=== PATIENT | female | born 1995 | race Caucasian/White ===

== ENCOUNTER 2022-05-25 17:10 | Outpatient (CLI) | payer BC, SELFPAY | END 2022-05-25 17:11 | disposition home or self-care (01) | PROVIDERS: PCP Family Medicine; Visit Provider Physician Assistant | DX: O99.281 Endocrine, nutritional and metabolic diseases complicating pregnancy, first trimester (principal); Z3A.12 12 weeks gestation of pregnancy | CPT/HCPCS: 84443 ==

== ENCOUNTER 2022-07-14 08:35 | Outpatient (CLI) | payer BC, SELFPAY ==
--- NOTE | 2022-07-14 08:45 | CRLHL7_ITS ---
For Patients: As a result of the Century Cures Act, medical imaging exams and procedure reports are released immediately into your electronic medical record. You may view this report before your referring provider. If you have questions, please contact your health care provider. INDICATION: Evaluate anatomy. COMPARISON: 04/22/2022 TECHNIQUE: Real time donahue scale imaging of the fetus was performed as well as color Doppler analysis of the umbilical vessels. FINDINGS: Sonographic imaging demonstrates a single living intrauterine gestation. Fetus demonstrates a regular cardiac rate of 142 beats per minute. Fetus has a vertex position. The placenta lies anteriorly without evidence of placenta previa. The edge of the placenta is located 2.8 cm from the internal cervical os. Amniotic fluid volume appears normal. Single deepest vertical pocket: 4.9 cm. The cervix is closed and measures 3.5 cm in length. The composite ultrasound gestational age is calculated at 21 weeks 1 day with an estimated sonographic due date of 11/23/2022. The estimated weight is 397 grams which lies at the 65th %. The following biometric measurements were obtained: Biparietal diameter: 5.2 cm/21 weeks 6 days 87th% Head circumference: 18.6 cm/20 weeks 6 days 50th% Abdominal circumference: 16.1 cm/21 weeks 1 day 60th% Femur length: 3.5 cm/20 weeks 6 days 47th% The HC/AC ratio measures: 1.15 range (1.06-1.25) On anatomic survey, there is a normal appearance of the cerebral ventricles, cavum septi pellucidi, cisterna magna and cerebellum. The nose, lips, and facial profile appear normal. The cervical, thoracic and lumbar spine are well visualized and appear normal. There is a normal four-chamber heart view and the left and right ventricular outflow tracts appear normal. The diaphragm and stomach appear normal. The kidneys and bladder also appear normal. There is a normal three-vessel cord and cord insertion site. The four extremities appear normal. IMPRESSION: Normal OB ultrasound exam with concordance of clinical and sonographic dating. No intrinsic abnormalities noted on anatomic survey. Dictated by Jaun Heredia MD @ 07/14/2022 9:46:41 AM (Electronically Signed)
== END 2022-07-14 08:36 | disposition home or self-care (01) ==
LOC: US 08:36
PROVIDERS: PCP Family Medicine; Visit Provider Obstetrics & Gynecology
DX: Z34.92 Encounter for supervision of normal pregnancy, unspecified, second trimester (principal); Z3A.20 20 weeks gestation of pregnancy
CPT/HCPCS: 76805

== ENCOUNTER 2022-08-06 08:54 | Outpatient (CLI) | payer BC, SELFPAY ==
[2022-08-06 11:03] LABS: TSH With Reflex to FT4* 0.865 uIU/mL (0.270-4.200)
== END 2022-08-06 08:55 | disposition home or self-care (01) ==
LOC: NFLDREF 08:54
PROVIDERS: PCP Family Medicine; Visit Provider Advanced Practice Midwife
DX: E03.9 Hypothyroidism, unspecified (principal)
CPT/HCPCS: 84443

== ENCOUNTER 2022-09-03 08:54 | Outpatient (CLI) | payer BC, SELFPAY ==
[2022-09-04 23:49] LABS: Rapid Plasma Reagin (RPR) Non Reactive (Non Reactive)
== END 2022-09-03 08:55 | disposition home or self-care (01) ==
PROVIDERS: PCP Family Medicine; Visit Provider Advanced Practice Midwife
DX: Z34.80 Encounter for supervision of other normal pregnancy, unspecified trimester (principal)
CPT/HCPCS: 86592

== ENCOUNTER 2022-09-10 08:03 | Outpatient (CLI) | payer BC, SELFPAY ==
[2022-09-10 08:16] LABS: Glucose Fasting Check 75 mg/dl (60-115)
[2022-09-10 12:57] LABS: Glucose 1 Hour Gest 186 mg/dl (70-180)
[2022-09-10 12:58] LABS: Glucose GTT-Gestational 3 Hr 131 mg/dl (70-140)
== END 2022-09-10 08:04 | disposition home or self-care (01) ==
LOC: NFLDREF 08:03
PROVIDERS: PCP Family Medicine; Visit Provider Advanced Practice Midwife
DX: Z34.80 Encounter for supervision of other normal pregnancy, unspecified trimester (principal)
CPT/HCPCS: 82951; 82952

== ENCOUNTER 2022-10-08 15:15 | Outpatient (CLI) | payer BC, SELFPAY | END 2022-10-08 15:16 | disposition home or self-care (01) | PROVIDERS: PCP Family Medicine; Visit Provider Advanced Practice Midwife | DX: E03.9 Hypothyroidism, unspecified (principal) | CPT/HCPCS: 84443 ==

== ENCOUNTER 2022-10-28 09:21 | Outpatient (CLI) | payer BC, SELFPAY ==
[2022-10-29 09:54] LABS: Strep B DNA Probe NEGATIVE (Negative)
[2022-10-30 03:11] LABS: Strep B Pen/Amox Allergy No
== END 2022-10-28 09:22 | disposition home or self-care (01) ==
LOC: NFLDREF 09:21
PROVIDERS: PCP Family Medicine; Visit Provider Advanced Practice Midwife
DX: Z34.93 Encounter for supervision of normal pregnancy, unspecified, third trimester (principal); Z3A.35 35 weeks gestation of pregnancy
CPT/HCPCS: 87081; 87653

== ENCOUNTER 2022-12-03 13:50 | Outpatient (CLI) | payer BC, SELFPAY ==
--- NOTE | 2022-12-03 14:00 | CRLHL7_ITS ---
For Patients: As a result of the Century Cures Act, medical imaging exams and procedure reports are released immediately into your electronic medical record. You may view this report before your referring provider. If you have questions, please contact your health care provider. INDICATION: Post-dates. 41 week 0 days gestation. Assess well-being. COMPARISON: July 14, 2022. TECHNIQUE: Real time donahue scale imaging of the fetus was performed. Without non-stress testing. FINDINGS: Sonographic imaging demonstrates a single living intrauterine gestation. Fetus demonstrates a regular cardiac rate of 118 beats per minute. Fetus has a vertex orientation. The amniotic fluid volume appears normal and there is a single deepest pocket measurement of 4.7 cm. The fetus was active and demonstrated normal breathing movements. There was normal flexion and extension of the trunk and extremities. IMPRESSION: Normal biophysical profile score of 8 out of 8. Dictated by David Lawrence MD @ 12/03/2022 3:05:17 PM (Electronically Signed)
== END 2022-12-03 13:51 | disposition home or self-care (01) ==
LOC: US 13:51
PROVIDERS: PCP Family Medicine; Visit Provider Advanced Practice Midwife
DX: O48.0 Post-term pregnancy (principal)
CPT/HCPCS: 76819

== ENCOUNTER 2022-12-07 07:02 | Inpatient (IN) | payer BC, SELFPAY ==
[2022-12-07] VITALS (83 sets, daily range): BP systolic 96–169; BP diastolic 55–95; PULSE 64–125; RESP 16–18; TEMP 36.4–36.9; O2SAT 93–100; BMI 32.3
--- NOTE | 2022-12-07 07:59 | W.PM.LDBA ---
Subjective History of Present Illness Time Seen by Provider: 07:59 Date Seen: 12/07/22 Narrative: Subjective: Cristel is a 27 year-old G1 now P0 at 41 Weeks, 1 Days gestation who presents from home for induction of labor r/t post-dates . Cervical exam on admission was 1 cm/20 % effaced/-3 station with membranes intact in vertex presentation.?She is supported by her Leoncio. Open to epidural if needed, declines waterbirth. OB Problem List: H&P done 11/04/22 by Hussain Fernandez CNM : Leoncio 1. Hypothyroidism. Taking 50 mcg at beginning of , increased to 75 mcg 04/13/22. 04/13/22: TSH 4.040, free T4 1.26 04/22/22: TSH 2.530 05/25/22: TSH 1.900 Plan to test TSH with reflex T4 each trimester: 2nd trimester: 24 weeks: 0.865 3rd trimester: 33 weeks: 1.03 2. Rubella nonimmune. Vaccination recommended. 3. Failed 1hr GTT (142), but passed 3 hr Flu:07/14/2022 COVID: Completed in boosted x1 Tdap: 10/08/22 OB - Problem Based A/P Additional Plan (1) Post-dates : Status: Acute (2) Hypothyroid: Status: Acute Plan ASSESSMENT:? 27 yo at 41 1/7 weeks gestation? complicated by:?Hypothyroidism, Post-dates Labor type: Induced Category 1 FHR pattern.?? GBS negative ? PLAN:? 1. IOL per cytotec protocol? 2. Monitoring per policy, continuous? 3. Candidate for analgesia of choice.?? 4. Patient encouraged to reposition and ambulate to promote physiologic labor and .? 5. Anticipate progress to active labor and ? Delivery/Labor/Induction Plan Plan: induction Induction method: per misoprostol protocol OB Exam Physical Exam Vital signs: Pulse BP 100 131/78 12/07/22 07:21 12/07/22 07:21 Narrative: Objective: VSS, afebrile General Appearance:? Calm, cooperative. ?No acute distress. ? Psychiatric Exam: Alert and oriented, appropriate affect Abdomen: Gravid Ctx: ?Q 8-10 min apart. Mild FHTs: ?Baseline: 130 bpm ? Variability: Moderate ? Accels: Present ? ?Decels: ?Absent SVE: 1cm/20%/-3 Membranes: Intact? Detailed Labor and Delivery Exam Patient Gravid: Yes
[2022-12-07] MEDS: miSOPROStoL 25 MCG/0.25 TABLET VAGINAL (08:00)
[2022-12-07 08:28] LABS: Basophils Absolute Auto 0.02 K/uL (0.00-0.30); Basophils Percent Auto 0.2 % (0.0-3.0); Eosinophils Absolute Auto 0.14 K/uL (0.00-0.50); Eosinophils Percent Auto 1.7 % (0.0-7.0); Hematocrit 38.5 % (33.0-51.0); Hemoglobin* 12.8 gm/dL (12.0-16.0); Immature Granulocytes Abs Auto 0.04 K/uL (0.00-0.30); Immature Granulocytes Pct Auto 0.5 %; Lymphocytes Percent Auto 18.9 % (20-44); Mean Corpuscular HGB Conc 33 gm/dL (32-36); Mean Corpuscular Hemoglobin 29 pg (26-34); Mean Corpuscular Volume 89 fL (80-100); Monocytes Percent Auto 9.6 % (0.0-11.0); Neutrophils Absolute Auto 5.81 K/uL (1.7-7.0); Neutrophils Percent Auto 69.1 % (42.0-72.0); Platelet Count* 252 K/uL (140-440); RDW Coefficient of Variation % 13.8 % (11.5-15.5); Red Blood Count 4.35 m/uL (4.00-5.20); White Blood Count* 8.41 K/uL (4.50-11.00)
[2022-12-07 08:29] LABS: Slide Review Reflex No
[2022-12-07 09:17] LABS: SARS PCR* Negative SARS-CoV-2 (Negative)
[2022-12-07] MEDS: LACTATED RINGERS 1000 ML 1,000 ML 999 ML IV (15:51)
[2022-12-07] MEDS: LIDOCAINE 2% (PF) 5 ML VIAL EPIDURAL (16:17)
[2022-12-07] MEDS: ROPIVACAINE 0.2% 100 ml 100 ML 12 MG EPIDURAL (16:17)
--- NOTE | 2022-12-07 16:28 | P.ANBPRC_ITS ---
[facility] Medical History (Updated 12/07/22 @ 10:50 by Cyndi Carvajal CNM) Hypothyroid Surgical History (Updated 11/04/22 @ 11:54 by Ronda Fernandez CNM) H/O laparoscopy Family History (Updated 11/04/22 @ 11:56 by Ronda Fernandez CNM) Father Diabetes Social History (Updated 11/04/22 @ 11:54 by Ronda Fernandez CNM) Narrative: SOCIAL HISTORY: Occupation: Occupational therapist at [employer] Marital status: . Partner: Leoncio. Lives with: . Pets: Cat and dog. Restorationism/cultural needs: No. Chemical or radiation exposure: No. Pre- tobacco use: No. Pre- alcohol use: No. Current tobacco use: No. Current alcohol use: No. Recreational drug use: No. Dietary restrictions: No. Blood transfusion acceptable in an emergency: Yes. Planning to breastfeed: Yes. Smoking Status: Never smoker Little interest or pleasure in doing things: several days Feeling down, depressed, or hopeless: not at all Meds Home Medications and Allergies Home Medications Medication Instructions Recorded Confirmed Type prenat.vits,debbie,wqx-[id number]-rflcx 1 tab PO QDAY 04/22/22 12/07/22 History Allergies Allergy/AdvReac Type Severity Reaction Status Date / Time No Known Allergies Allergy Verified 12/07/22 08:44 Results Labs Labs: Laboratory Results - last 24 hr 12/07/22 12/07/22 12/07/22 07:06 08:17 08:17 WBC 8.41 RBC 4.35 Hgb 12.8 Hct 38.5 MCV 89 MCH 29 MCHC 33 RDW Coeff of Elisabeth 13.8 Plt Count 252 Neut % (Auto) 69.1 Lymph % (Auto) 18.9 L [place] % (Auto) 9.6 Eos % (Auto) 1.7 Baso % (Auto) 0.2 Neut # (Auto) 5.81 Lymph # (Auto) 1.60 Ogle # (Auto) 0.80 Eos # (Auto) 0.14 Baso # (Auto) 0.02 SARS-CoV-2 (PCR) Negative SARS-CoV-2 Blood Type O Positive Antibody Screen NEGATIVE Vital Signs Vital Signs: Last Vital Signs Temp 98.4 F 12/07/22 13:19 Pulse 83 12/07/22 16:25 Resp 16 12/07/22 13:19 BP 122/68 12/07/22 16:25 Pulse Ox 100 12/07/22 16:24 Weight: 80.3 kg Height: 157.48 cm Anesthesia Procedures Epidural Insertion Patient Location: OB Start Time: 15:40 Stop Time: 16:40 Start Date: 12/07/22 Stop Date: 12/07/22 Reason for Block: procedure for pain Patient Position: sitting Performed By: Rose Madrid Preanesthetic Checklist: IV checked, risks and benefits discussed, monitors and equipment checked, pre-op evaluation, timeout performed and anesthesia consent Prep: chlorhexidine gluconate Monitoring: blood pressure monitoring, continuous pulse oximetry and heart rate Approach: midline Vertebral Space: lumbar (1-5) Epidural Technique: GRIFFIN saline Needle Type: Tuohy needle Injection Technique: continuous catheter (continuous catheter) Needle gauge: 17 Needle Length (cm): 10 cm Needle Insertion Depth (cm): 6 Catheter Gauge: 19 Catheter Type: multi-orifice Catheter at skin depth (cm): 15 Test Dose Result: negative and lidocaine 1.5% with epinephrine 1 to 200,000
[2022-12-07] MEDS: PHENYLEPHRINE 100 MCG/ML SYRINGE IVP ×4 (17:08→17:50)
[2022-12-07] MEDS: LACTATED RINGERS 1000 ML 1,000 ML 1200 ML IV ×2 (17:08→17:50)
--- NOTE | 2022-12-07 17:27 | P.OBPN_ITS ---
Subjective Date Seen: 12/07/22 Narrative: Subjective:? Cristel is coping well with labor pain/contractions. She is currently being supported by her Leoncio. She received one dose of cytotec at 8am today. Contractions were mild and not uncomfortable. Before the next dose of cytotec was due, Cristel reported the contractions were getting more intense. She was coping well with contractions, breathing through them and changing positions as needed. Leoncio was supportive and providing counter pressure and massage as needed. Contractions continued to be regular and Cristel reported that they were getting much more uncomfortable. Cytotec was held and contractions continued on their own. Cristel requested an epidural about 3:30pm. SVE 4/90%/-1 per RN. Pt was resting comfortably with epidural when I came to check on her. Shortly after I left, called back to room by RN for decels. Returned to room and pt was in all 4s position, but decels to 90's and 80's noted. Phenylephedrine given. Fluid bolus initiated, assisted pt to move into multiple positions including side lying, high fowlers and semi-fowlers. Dr. England called to assess.. FHR returned to baseline with moderate variability with Cristel in semi-fowlers. Will continue to monitor and assist pt to change positions as needed. Denies concerns. Questions answered to her satisfaction. ?She would like to continue with epidural for comfort and pain management.?? ? Objective Exam: Objective: VSS, afebrile General Appearance:? Calm, cooperative. ?No acute distress. ? Psychiatric Exam: Alert and oriented, appropriate affect Abdomen: Gravid Ctx: ?Q 1-4 min apart. Moderate FHTs: ?Baseline: 120 ? Variability: Moderate ? Accels: Present ? ?Decels: ?Present - can not determine late or early based on contraction pattern. Occas ional decel down to 90 with good return to baseline. SVE: 6cm/90%/-1 Membranes: Intact? Vital Signs: Last Vital Signs Temp 97.8 F 12/07/22 16:20 Pulse 72 12/07/22 17:21 Resp 16 12/07/22 16:20 BP 108/61 12/07/22 17:26 Pulse Ox 100 12/07/22 17:20 Plan Plan: Assessment:?? 27 at 41w 1d gestation?? Patient is coping well with challenges of labor.?? Labor type: Induced, Active labor? Category 2 FHR pattern.?? complicated by: Post-dates Plan:?? Continue to monitor closely Continue with routine intrapartum cares as ordered.?? Patient encouraged to change positions to promote physiologic labor and .?? Epidural and Nonpharmacologic comfort measures per patient preference. Monitoring: continuous per protocol Anticipate progress to NVD. ?
--- NOTE | 2022-12-07 20:13 | PM.OBPNL ---
Subjective Time Seen by Provider: 20:00 Date Seen: 12/07/22 Narrative: Subjective:? Into room to evaluate pt for progress/change Cristel is coping well with labor pain/contractions. Resting comfortably in bed with epidural. She reports she was able to get some sleep and feels much better now. She is currently being supported by Leoncio at bedside. Denies concerns. SVE: rim on pt's leftside/100%/0. Contraction pattern remains irregular. RN discussed spinning babies inversion to try to get baby into an optimal position. Cristel agreeable and eager to try. Questions answered to her satisfaction. Baby tolerated inversion well. She would like to continue with epidural for comfort and pain management.?? Objective Exam: Objective: VSS, afebrile General Appearance:? Calm, cooperative. ?No acute distress. ? Psychiatric Exam: Alert and oriented, appropriate affect Abdomen: Gravid Ctx: ?Q 1-5 min apart. Strong FHTs: ?Baseline: 120-125 ? Variability: Moderate ? Accels: Present ? ?Decels: ? Occasional variable decel with good return to baseline, possible earlies but unable to determine based on contraction pattern. SVE: Rim/100%/0 Membranes: Intact? ? Vital Signs: Last Vital Signs Temp 97.6 F 12/07/22 17:26 Pulse 78 12/07/22 19:57 Resp 16 12/07/22 17:26 BP 137/95 H 12/07/22 19:57 Pulse Ox 100 12/07/22 17:20 Plan Plan: Assessment:?? 27 at 41w 1d gestation?? Patient is coping well with challenges of labor.?? Labor type: Induced, Active labor? Category 2 FHR pattern.?? complicated by: Post-dates Plan:?? Continue to monitor closely Continue with routine intrapartum cares as ordered.?? Patient encouraged to change positions to promote physiologic labor and .?? Epidural and Nonpharmacologic comfort measures per patient preference. Monitoring: continuous per protocol Anticipate progress to NVD. ?
[2022-12-07] MEDS: ONDANSETRON 2 MG/ML inj 4 MG IV (23:17)
[2022-12-08] VITALS (19 sets, daily range): BP systolic 107–143; BP diastolic 60–80; PULSE 69–166; RESP 16–18; TEMP 36.4–37.3; O2SAT 97–99
[2022-12-08] MEDS: OXYTOCIN 30 unit/500 ML in NS 30 UNIT/500 ML BAG 300 UNIT IVPB (00:06)
[2022-12-08] MEDS: ROPIVACAINE 0.2% 100 ml 100 ML 12 MG EPIDURAL (00:26)
[2022-12-08] MEDS: LIDOCAINE 1 % PF 30 ML INJECTION (01:18)
--- NOTE | 2022-12-08 01:25 | W.PM.VAGD1_ITS ---
Procedure Delivery date: 12/08/22 Procedure Done: Global Procedure Details: Cristel is a 27 year-old G1 now P1 admitted on 12/07/22 at 41 Weeks, 4 Days gestation for IOL r/t post-dates . Cervical exam on admission was 1 cm/20 % effaced/-2 station with membranes intact in vertex presentation.? SROM?occurred at delivery with meconium stained fluid. Labor Analgesia:? Epidural Pitocin:? No, PP only for AMTSL Labor onset:? 12/07/22 1500 Complete: 12/07/222124 Pushing:? 12/07/222129 heart tones during second stage were: Moderate variability, Baseline 135- 145 with accels, and decels into the 90's with pushing. Good return to baseline between contractions. Cristel pushed with good effort in a number of different positions in the bed. Her Leoncio was supportive at bedside. After 2 hours of pushing Cristel was getting tired and discouraged, but when she could feel her baby's head and see him in the mirror, she was able to push more effectively and her baby was born shortly after. At 12/08/22 0000 a viable male infant, James, delivered in vertex OA presentation over an intact perineum via spontaneous vaginal?delivery. ?Infant was placed on maternal abdomen. ?Cord was clamped and cut after a 5+ minute delay. Nose and mouth were bulb suctioned, infant taken to warmer for further assessment, see RN's note for details.? weight 9lbs, 3oz. ?Apgars: 5 at 1 minute and 7 at 5 minutes and 8 at 10 min. Shoulder dystocia: no. ?Nuchal cord: yes, x1 loose, easily delivered through. Placenta delivered spontaneously and complete at 0012 with a 3 vessel cord. Mother and infant were stable after?delivery. Lacerations:?2nd degree, repaired with 3-0 vicryl.? Blood loss: 100 mL. Blood loss measurement type: QBL? Sponge and needles counts are correct. Events: Labor Induction (Post-dates ) Intrapartal Events: Labor Induction Delivery monitor: external FHT and external uterine Route of delivery: Laceration description: Perineal - 2nd Degree Delivery repair: Vicryl (3.0) Estimated blood loss (mL): 100 (QBL) Anesthesia type: Epidural Disposition: floor Gender: Male presentation: vertex Placental Delivery Description: Spontaneous Cord Description: 3 Vessels, Nuchal Cord (deliverd through) and Loose OB Vag Delivery Procedures Additional Procedures ECV: No Cook Catheter Insertion: No NST: No D&C: No Laceration Repair: Yes (Deep vaginal/perineal 2nd, repaired with 3.0 vicryl in the usual fashion) Tubal Ligation : No Other: No
[2022-12-08] MEDS: IBUPROFEN 600 MG TABLET PO ×3 (02:11→17:40)
--- NOTE | 2022-12-08 04:53 | PM.OBPNVD1 ---
OB - PN:Subj Subjective Time Seen by Provider: 04:53 Date Seen: 12/08/22 Interval history: Subjective: Called to room by RN to assess pt for ULQ pain and shortness of breath. Cristel is a 27 y.o.G1 now P1who was admitted to L & D for IOL r/t post-dates. ?She had an uncomplicated NVD 5 hours ago. ? Cristel feels mostly well, but when she got up to use the bathroom a little bit ago, she reported a significant pain in her upper abdomen, under her ribs, including her back, and more on the left side. RNs reported she was short of breath and did not look well when sitting on the toilet. Cristel stated that she does not feel pain while lying down in bed, but had difficulty sitting up without assistance. The pain is worse when she is sitting without back support. She denies pain in her neck, shoulders and arms. When resting in bed she is comfortable, but still appears tired. She has taken ibuprofen, which seems to be helping with overall pain from delivery. Vital signs have been stable.? She has remained afebrile.? She is tolerating food and drinks well. ?She is voiding without difficulty.? She is passing gas and has not had a bowel movement.? She did ambulate to the bathroom, and reports that she felt a little lightheaded.? Has a small amount of rubra lochia and no significant clots. Bleeding is within normal limits, fundus is firm at umbilicus. Cristel pushed for 2 1/2 hours in multiple positions in bed with an epidural: right & left side-lying, semi-fowlers, squatting with squat bar, and tug of war with a sheet/squat bar. Cristel reported upper abdominal pain when she tried pushing in semi-reclined position, but it was resolved by changing positions. She stated that the current pain she has in her upper abdomen when sitting unassisted is in the same area. Laying down in bed she feels much better and does not have pain. Denies other concerns or questions at this time. Patient comments OB post-: pain well controlled (over all pain well controlled, pt reports upper abdominal pain when sitting unsupported) and tolerating diet [place] status: and doing well [place] feeding status: exclusively OB - PN: Obj Exam Physical Exam: Vital signs: Temp Pulse Resp BP Pulse Ox O2 Del Method 98 F 112 H 16 124/72 99 12/08/22 04:38 12/08/22 04:38 12/08/22 04:38 12/08/22 04:38 12/08/22 04:38 12/08/22 04:38 Narrative: Objective: VSS, BP: 124/72, O2: Sat 99% GENERAL APPEARANCE: tired but calm,?normal affect, alert, no acute distress MOOD: ?appropriate HEENT: normocephalic, neck supple, full ROM CHEST: ?Symmetrical chest wall movement. ?Normal respiratory effort. ?Clear to auscultation, all lobes, bilaterally HEART: ?regular rate and rhythm ABDOMEN: ?soft, mildly-tender. Uterine fundus is firm, at Umbilicus, midline and is appropriate for the stage of recovery. ?Bowel sounds present all 4 quadrants. No pain with palpation. EXTREMITIES: ?normal and mild edema Constitutional: Constitutional: no acute distress and cooperative Routine HEENT Exam: Head: Present normocephalic Eye: Present normal appearance Detailed ENT Exam: Oral mucosa: Present moist Routine Chest/Breast/Axilla Exam: Chest wall: Absent tenderness Routine Respiratory Exam: Respiratory: Present CTA bilaterally Routine Cardiovascular Exam: Cardiovascular: Present RRR Routine Abdominal Exam: Abdominal: Present normal bowel sounds, soft and tenderness (no pain with palpation) Fundus: Present firm (at umbilicus) Routine Back/Spine/Pelvis Exam: Back/Spine: Present full ROM Routine Skin Exam: Skin: Present intact and normal color Routine Neurological Exam: Neurological: Present alert, moving all extremities, normal tone, hearing grossly intact and normal speech Detailed Neurological Exam: Coma Scale: Eye Opening: Spontaneous (4) Verbal Response: Orientated (5) Routine Psychiatric Exam: Psychiatric: Present normal affect, normal thought process, cooperative, good insight and good judgment OB - PN: Obj Data Labs Labs: Laboratory Results - last 24 hr 12/07/22 12/07/22 12/07/22 07:06 08:17 08:17 WBC 8.41 RBC 4.35 Hgb 12.8 Hct 38.5 MCV 89 MCH 29 MCHC 33 RDW Coeff of Elisabeth 13.8 Plt Count 252 Neut % (Auto) 69.1 Lymph % (Auto) 18.9 L [place] % (Auto) 9.6 Eos % (Auto) 1.7 Baso % (Auto) 0.2 Neut # (Auto) 5.81 Lymph # (Auto) 1.60 [place] # (Auto) 0.80 Eos # (Auto) 0.14 Baso # (Auto) 0.02 SARS-CoV-2 (PCR) Negative SARS-CoV-2 Blood Type O Positive Antibody Screen NEGATIVE OB - PN: A/P Vaginal Delivery Assessment and Plan (1) Abdominal muscle pain: Status: Acute (2) care and examination immediately after delivery: Status: Acute (3) Lactating mother: Status: Acute Plan Assessment/Plan G 1 P 1 status post uncomplicated NVD. Lactating Mother Very tired and sore from pushing and delivery Possible muscle strain r/t effort with pushing and epidural Continue to monitor closely Continuous pulse-ox monitoring while sleeping/resting in bed Encouraged Maria Fernanda call nurse with sudden pain, shortness of breath, dizziness or other concerns Ambulation with assistance Continue routine cares. . ?May see if desired. Plan day: 0 Plan: routine care
[2022-12-08] MEDS: DOCUSATE SODIUM 100 MG CAPSULE PO (09:00)
[2022-12-08] MEDS: LEVOTHYROXINE 75 MCG TABLET PO (09:01)
--- NOTE | 2022-12-08 12:13 | PC.NURSE ---
Addendum entered and electronically signed by Katia Alcocer RN 12/08/22 12:17: This RN advised pt to call if any new or worsening symptoms and if needing to get up to the bathroom. Pt verbalized understanding and in agreement with plan of care. Original Note: Pt was able to walk to bathroom. Pt became tired, short of breath, and c/o bilateral upper abdominal pulling. This resolved immediately once pt back to bed in semi fowlers position. Vitals checked and WNL. Ronda Fernandez notified and assessed pt at bedside. Abdominal binder applied per Ronda's recommendation. Pt reports this is providing comfort. Lab orders placed. Lab called to draw.
--- NOTE | 2022-12-08 12:17 | PM.OBPNVD1 ---
OB - PN:Subj Subjective Date Seen: 12/08/22 Narrative: Evaluated Alyssa for upper abdominal pain that started last night after her epidural. She denies pain when sitting or lying but has the pain when she out of bed. She recently went to the bathroom. She states that she felt the pain when she stood but that it increased when she was on the toilet to where she felt that it was difficult to take a deep breath which made her feel short of breath. She states that the pain is midline right below her sternum and sometimes radiates along the margins of the ribs bilaterally. She states that it feels like a downward puling pain. VSS. OB - PN: Obj Exam Physical Exam: Vital signs: Temp Pulse Resp BP Pulse Ox O2 Del Method 98.1 F 69 18 119/73 98 12/08/22 11:25 12/08/22 11:25 12/08/22 11:25 12/08/22 11:25 12/08/22 11:25 12/08/22 11:25 Constitutional: Constitutional: no acute distress Routine Abdominal Exam: Abdominal: Present soft; Absent distended, firm, guarding, rebound or tenderness Fundus: Present firm Detailed Abdominal Exam: Palpation/Percussion: Absent hepatomegaly or splenomegaly OB - PN: A/P Vaginal Delivery Assessment and Plan (1) Abdominal muscle pain: Status: Acute (2) care and examination immediately after delivery: Status: Acute (3) Lactating mother: Status: Acute Plan Pre-Eclampsia labs to rule out blood pressure involvement. Abdominal binder with ambulation to reduce stress on abdominal muscles. Assist with ambulation until she feels stable.
[2022-12-08 12:21] LABS: Hematocrit 32.7 % (33.0-51.0); Hemoglobin* 10.9 gm/dL (12.0-16.0); Mean Corpuscular HGB Conc 33 gm/dL (32-36); Mean Corpuscular Hemoglobin 30 pg (26-34); Mean Corpuscular Volume 89 fL (80-100); Platelet Count* 224 K/uL (140-440); Red Blood Count 3.67 m/uL (4.00-5.20); White Blood Count* 14.32 K/uL (4.50-11.00)
[2022-12-08 12:24] LABS: Slide Review Reflex No
[2022-12-08 12:40] LABS: Alanine Aminotransferase* 18 U/L (4-35); Aspartate Amino Transferase* 39 U/L (12-35); Creatinine* 0.7 mg/dL (0.5-1.5); Est. Creatinine Clearance* 94.63; Estimated Glomerular Filt Rate 121 ml/min
[2022-12-08] MEDS: ACETAMINOPHEN 500 MG TABLET 1000 MG PO ×2 (15:06→21:19)
[2022-12-08] MEDS: MEASLES,MUMPS,RUBELLA VACC/PF 1 DOSE INJ 1 EACH SUBCUT (16:26)
[2022-12-09] MEDS: IBUPROFEN 600 MG TABLET PO ×2 (00:09→08:11)
[2022-12-09] MEDS: ACETAMINOPHEN 500 MG TABLET 1000 MG PO ×2 (03:41→11:55)
[2022-12-09 07:30] LABS: INR 0.84 (0.91-1.10); Prothrombin Time 12.1 Seconds
[2022-12-09 07:35] LABS: Fibrinogen* 459 mg/dL (200-450)
[2022-12-09] MEDS: LEVOTHYROXINE 75 MCG TABLET PO (08:12)
--- NOTE | 2022-12-09 08:13 | PM.OBDSVD1 ---
DS: Providers Provider Date Seen: 12/09/22 Date of admission: 12/07/22 07:02 Primary care physician: Sumit Floyd MD Admitting Clinician: Cyndi Carvajal CNM Attending Physician on discharge: Liliana Macedo CNM DS: Diagnosis Discharge Diagnosis (1) care and examination immediately after delivery: Status: Acute (2) Lactating mother: Status: Acute (3) Abdominal muscle pain: Status: Acute Problem details: Improving with abdominal binder (4) Hypothyroid: Status: Acute Problem details: Continue 75mcg , needs TSH w/ reflex T4 at 6 weeks (5) Attention deficit disorder: Status: Acute Exam Narrative: Exam Narrative: GENERAL APPEARANCE:? normal affect, alert, no distress? MOOD:? appropriate? CHEST:? clear to auscultation? HEART:? regular rate and rhythm? ABDOMEN:? soft, non-tender the uterine fundus is At Umbilicus, Midline and is appropriate for the stage of recovery.? PERINEUM:? mild edema of the perineum, there is a Perineal Laceration,?2nd degree, that is healing well.? EXTREMITIES:? normal and +1 edema? Const: Vital Signs, click to edit/add: Vital Signs - 24 hr 12/08/22 09:02 12/08/22 11:25 12/08/22 16:21 Temperature 97.6 F 98.1 F 98.1 F Pulse Rate [Pulse Oximeter] 89 69 76 Respiratory Rate 16 18 16 Blood Pressure [Le ft Arm] 118/74 119/73 107/71 Pulse Oximetry 98 98 97 Oxygen Delivery Me thod Room Air Room Air Room Air 12/08/22 19:53 12/08/22 23:19 Temperature 97.9 F 98.3 F Pulse Rate [Pulse Oximeter] 94 79 Respiratory Rate 16 16 Blood Pressure [Le ft Arm] 121/80 118/78 Pulse Oximetry 98 97 Oxygen Delivery Me thod Room Air Room Air Documenting provider has reviewed patient's vital signs: yes OB - DS: Summary Hospital Course Hospital Course: Cristel is a 27 year old G 1 P 1 at 41 5/7 weeks gestation that was admitted to the Center on 12/07/22 for IOL for post-dates. She had an uncomplicated vaginal delivery. She delivered a viable male . The patient feels well.?The pain is well controlled with current medications. Her upper abdominal discomfort has been managed well with an abdominal binder. She has no new complaints.?Urinary output is adequate and she is voiding without difficulty.?Has a good appetite, is tolerating a general diet, is passing flatus, and has not yet had a bowel movement.? Has small amount of rubra lochia.?She is ambulating well. She is and reports it is going well. She does desire to continue to work on her skills and see today.?Her plan for control is condoms. Peripartum Data Infant delivery method: Vaginal Laceration description: Perineal - 2nd Degree complications: none Infant Gender: Male Discharge Plan: Home Status at Discharge Functional status at discharge: independent ambulation Overall status at discharge: patient is progressing back to baseline Time Spent with Patient Time attestation: Total time spent providing and/or coordinating discharge services: Time spent: Less than 30 minutes Discharge Plan Discharge Disposition: Home, Self-Care Date of Admission: 12/07/22 07:02 Attending Provider on Discharge: Liliana Macedo Primary Care Provider: Sumit Floyd Condition: Stable Anticipated Discharge Date/Time: 12/09/22 12:00 Discharge Medications: New acetaminophen 500 mg Tablet 1,000 mg PO Q6H PRNQty: 0 0RF docusate sodium 100 mg Capsule 100 mg PO DAILY Qty: 90 0RF ibuprofen 600 mg Tablet 600 mg PO Q6H PRNQty: 60 0RF Continued prenat.vits,debbie,poo-ynqc-vaijc Tablet 1 tab PO QDAY levothyroxine 75 mcg capsule 75 mcg PO QDAY Qty: 30 3RF Discharge Orders: Discharge Order (Routine); Ordered 12/09/22 Ordered By: Liliana Macedo Patient Education: OB Over the Counter Medication Information, OB Vaginal/Breast Feeding Additional Instructions: Discharge instructions were reviewed with the patient including signs and symptoms of infection and home going medications Nothing vaginally for 6 weeks: no tampons or intercourse Off Work or School for 6 weeks 2-week visit: discuss infant feeding concerns, review control options and screen for anxiety/depression. 6-week visit for an annual exam. consultation services are available to all mothers and babies for the first year after delivery.? To make an appointment, please call [phone]. Activity Level: Activity as Tolerated Discharge Diet: Regular Follow Up Appointments: [facility] [Provider Group] (2 and 6 week . Needs TSH w/ reflex T4 with 6 week visit.) Forms: [employer] Info Instructions
[2022-12-09 08:22] VITALS: BP 115/76; PULSE 78; RESP 18; TEMP 36.3; O2SAT 96
[2022-12-09] MEDS: DOCUSATE SODIUM 100 MG CAPSULE PO (08:22)
== END 2022-12-09 12:50 | disposition home or self-care (01) | DRG 560 ==
PROVIDERS: Advanced Practice Midwife; Admitting Provider Advanced Practice Midwife; PCP Family Medicine; Visit Provider Advanced Practice Midwife
DX: O48.0 Post-term pregnancy (principal); O99.284 Endocrine, nutritional and metabolic diseases complicating childbirth; M79.18 Myalgia, other site; O70.1 Second degree perineal laceration during delivery; O76 Abnormality in fetal heart rate and rhythm complicating labor and delivery; E03.9 Hypothyroidism, unspecified; F98.8 Other specified behavioral and emotional disorders with onset usually occurring in childhood and adolescence; Z3A.41 41 weeks gestation of pregnancy; Z37.0 Single live birth
CPT/HCPCS: 01967; 36415; 59200; 82565; 84450; 84460; 85025; 85027; 85384; 85610; 86850; 86900; 86901; 87635; A9270; J2001; J2370; J2405; J2795; J7120

== ENCOUNTER 2023-01-19 10:13 | Outpatient (CLI) | payer BC, SELFPAY | END 2023-01-19 10:14 | disposition home or self-care (01) | LOC: NFLDREF 10:14 | PROVIDERS: PCP Family Medicine; Visit Provider Advanced Practice Midwife | DX: Z39.2 Encounter for routine postpartum follow-up (principal); E03.9 Hypothyroidism, unspecified | CPT/HCPCS: 84443 ==

== ENCOUNTER 2023-04-20 09:00 | Outpatient (RCR) | payer BC, SELFPAY | END 2023-08-18 23:59 | disposition home or self-care (01) | PROVIDERS: PCP Family Medicine; Visit Provider Advanced Practice Midwife | DX: R39.15 Urgency of urination (principal); R15.2 Fecal urgency; Z51.89 Encounter for other specified aftercare | CPT/HCPCS: 97110; 97140; 97162; 97535 ==

== ENCOUNTER 2024-02-22 08:46 | Outpatient (CLI) | payer BC, SELFPAY | END 2024-02-22 08:47 | disposition home or self-care (01) | PROVIDERS: PCP Family Medicine; Visit Provider Physician Assistant | DX: Z01.419 Encounter for gynecological examination (general) (routine) without abnormal findings (principal); E03.9 Hypothyroidism, unspecified; N94.6 Dysmenorrhea, unspecified; Z12.4 Encounter for screening for malignant neoplasm of cervix; Z13.6 Encounter for screening for cardiovascular disorders; Z13.29 Encounter for screening for other suspected endocrine disorder; Z13.1 Encounter for screening for diabetes mellitus | CPT/HCPCS: 80061; 82947; 84443 ==

== ENCOUNTER 2024-06-12 15:35 | Outpatient (CLI) | payer BC, SELFPAY | END 2024-06-12 15:36 | disposition home or self-care (01) | LOC: NFLDREF 06-18 10:27 | PROVIDERS: PCP Family Medicine; Referring Provider Family Medicine; Visit Provider Physician Assistant | DX: E03.9 Hypothyroidism, unspecified (principal) | CPT/HCPCS: 84443 ==

== ENCOUNTER 2024-12-14 10:48 | Outpatient (CLI) | payer BC, SELFPAY ==
--- NOTE | 2024-12-14 11:15 | CRLHL7_ITS ---
For Patients: As a result of the Century Cures Act, medical imaging exams and procedure reports are released immediately into your electronic medical record. You may view this report before your referring provider. If you have questions, please contact your health care provider. Indication: INFERTILITY Technique: Hysterosalpingogram performed. Fluoroscopic time 0.36 minutes. IMPRESSION: Normal patency of the fallopian tubes with spillage bilaterally. No endometrial canal filling defect. Dictated by Jaun Heredia MD @ 12/15/2024 1:32:12 PM (Electronically Signed)
--- NOTE | 2024-12-14 13:18 | W.PM.GYNPROC ---
Procedure Note Date of procedure: 12/14/24 Will [facility] bill your pro fee for this procedure?: Yes Procedure Description: PREPROCEDURE DIAGNOSIS: Secondary infertility. POSTPROCEDURE DIAGNOSIS: 1. Secondary infertility. 2. Patent fallopian tubes bilaterally. NAME OF PROCEDURE: Hysterosalpingogram. ANESTHESIA: None. COMPLICATIONS: None. PROCEDURE: After obtaining verbal consent, the patient was placed in the dorsal lithotomy position on the x-ray table. An open-sided bivalve speculum was introduced into the vagina and the cervix easily visualized. The cervix and vagina were then prepped with Betadine. The anterior lip of the cervix was grasped with a single-tooth tenaculum for traction. A balloon tipped double-lumen catheter was then gently inserted through the cervical opening into the uterine cavity. The balloon was insufflated with 3 mL of air. The speculum was removed. The patient was repositioned in the supine position, covered, and the radiologist was called to the room. A hysterosalpingogram was then performed. A total of approximately 5 cc of Optiray 300 water soluble contrast dye was injected through the double-lumen catheter under moderate pressure. There was immediate fill of the uterine cavity to the cornua and immediate fill of both fallopian tubes and free spillage of dye into the peritoneal cavity. The intrauterine balloon was deflated, revealing normal endometrial cavity contour. The catheter was removed. The patient tolerated the procedure well, though she did have moderate cramping discomfort during and just after the procedure. She was discharged to home in stable condition to follow up as needed in the [facility].
== END 2024-12-14 10:49 | disposition home or self-care (01) ==
PROVIDERS: PCP Family Medicine; Visit Provider Obstetrics & Gynecology
DX: N97.9 Female infertility, unspecified (principal)
CPT/HCPCS: 58340; 74740; A4649; Q9967

== ENCOUNTER 2024-12-18 15:43 | Outpatient (CLI) | payer BC, SELFPAY ==
--- NOTE | 2024-12-18 16:00 | CRLHL7_ITS ---
For Patients: As a result of the Century Cures Act, medical imaging exams and procedure reports are released immediately into your electronic medical record. You may view this report before your referring provider. If you have questions, please contact your health care provider. INDICATION: Female infertility COMPARISON: none TECHNIQUE: 2D donahue scale and color Doppler images were acquired of the pelvis using a transabdominal and transvaginal approach. FINDINGS: Sonographic images demonstrate a normal size and smooth outer contour of the uterus. Uterus measures 7.5 cm in length by 4.7 cm in AP diameter by 4.2 cm in transverse dimension. The myometrium has a normal uniform echotexture. The endometrial lining measures 12 mm in composite thickness. Echogenic foci associated with the endometrium may represent punctate calcifications. The right ovary measures 4.2 x 2.0 x 2.2 cm in size and the left ovary measures 2.9 x 1.4 x 2.0 cm. The ovaries demonstrate normal arterial and venous blood flow on color Doppler analysis. There are no suspicious fluid collections within the cul-de-sac. Dominant follicle right ovary is present measuring 1.7 cm. IMPRESSION: Endometrial thickness 1.2 cm with suspicion of small echogenic foci representing punctate calcifications. No uterine fibroid or endometrial fluid. Dominant right ovarian follicle measuring 1.7 cm. Dictated by Jaun Heredia MD @ 12/18/2024 9:34:38 PM (Electronically Signed)
== END 2024-12-18 15:44 | disposition home or self-care (01) ==
LOC: US 15:43
PROVIDERS: PCP Family Medicine; Visit Provider Physician Assistant
DX: N97.9 Female infertility, unspecified (principal); R93.89 Abnormal findings on diagnostic imaging of other specified body structures; N83.01 Follicular cyst of right ovary
CPT/HCPCS: 76830; 76856

== ENCOUNTER 2024-12-26 07:37 | Outpatient (CLI) | payer BC, SELFPAY | END 2024-12-26 07:38 | disposition home or self-care (01) | LOC: NFLDREF 12-30 06:25 | PROVIDERS: PCP Family Medicine; Referring Provider Family Medicine; Visit Provider Physician Assistant | DX: N97.9 Female infertility, unspecified (principal) | CPT/HCPCS: 84144 ==

== ENCOUNTER 2025-01-07 17:51 | Emergency (ER) | payer BC, SELFPAY ==
[2025-01-07 17:57] VITALS: BP 125/76; PULSE 102; RESP 18; TEMP 36.9; O2SAT 100; BMI 27.4
--- NOTE | 2025-01-07 18:27 | ED_ITS ---
HPI - General Date Seen: 01/07/25 Chief complaint: Abdominal Pain Stated complaint: 4 weeks , abdominal pain Time Seen by Provider: 01/07/25 17:52 Source: patient and family Mode of arrival: ambulatory Limitations: no limitations History of Present Illness HPI Narrative: Patient is a 29-year-old female who presents here with her , she has , last normal menstrual period was 02/25/2003, given her an EDC of 09/12/2025, and about 4 half weeks . She denies any bleeding, but has had abdominal discomfort since approximately Wednesday. She has had loose stools, associated with this. And a feeling throughout her entire abdomen of just being unwell she describes it as a colicky pain that comes and goes. Not worse with eating, but she feels a little lightheaded. Has some mild back pain bilaterally in her back also associated with this, denies any numbness tingling weakness was no dysuria frequency of urination. Past history of endometriosis by laparoscopy peak, previous normal vaginal delivery. Did not take any medications for this. Only home tests were done for . MD Complaint: abdominal pain Onset (ago): day(s) Pain Consistency: intermittent and colicky Location: abdomen and flank Severity: moderate Quality: Cramping and Aching Radiation: flank Relieving factors: rest Exacerbating factors: movement Associated symptoms: denies other symptoms Vaginal discharge: none Vaginal bleeding: none Patient : Yes OB History - Current : no complications OB History - Previous Pregnancies: no complications care: good care Related Data : 2 Para: 1 Home Medications ?Medication ?Instructions ?Recorded ?Confirmed XBT-[id number]-NG-omega 3-fat com #1 27 cap PO DAILY 12/12/24 12/12/24 mg-1 mg-300 mg capsule Previous Rx's ?Medication ?Instructions ?Recorded levothyroxine 25 mcg tablet 25 mcg PO DAILY #90 tabs 10/23/24 Allergies Allergy/AdvReac Type Severity Reaction Status Date / Time No Known Allergies Allergy Verified 01/07/25 17:56 Review of Systems Status of ROS: Reports: 10 or more systems reviewed and unremarkable except as noted in History and below [facility] Medical History Hypothyroid ?E03.9 - Hypothyroidism, unspecified (ICD-10) Dysmenorrhea (04/04/12) ?N94.6 - Dysmenorrhea, unspecified (ICD-10) Surgical History H/O laparoscopy ?Z98.890 - Other specified postprocedural states (ICD-10) Family History Father Diabetes Social History Narrative: SOCIAL HISTORY: Occupation: Occupational therapist at [employer] Marital status: . Partner: Leoncio. Lives with: . Pets: Cat and dog. Jehovah'S Witness/cultural needs: No. Chemical or radiation exposure: No. Pre- tobacco use: No. Pre- alcohol use: No. Current tobacco use: No. Current alcohol use: No. Recreational drug use: No. Dietary restrictions: No. Blood transfusion acceptable in an emergency: Yes. Planning to breastfeed: Yes. Smoking Status: Never smoker Do you use any of these nicotine containing products: None Second hand tobacco smoke exposure: No How often do you have a drink containing alcohol: never How often do you have six or more drinks on one occasion: Never AUDIT-C Alcohol total score: 0 Non-prescribed substance use: denies use service: No Exam Narrative: Exam Narrative: She is seen in room 3 she appears to be in no distress, alert oriented x3, her vital signs are listed, and otherwise normal with very very slight tachycardia at 1:02 a.m.. Pupils equal round reactive to light there is no scleral icterus redness oropharynx is normal good hydration status neck is supple chest is clear bilaterally heart sounds are normal, her abdomen it on deep palpation is some mild tenderness I would describe it more in her right lower quadrant than in her epigastrium she has a negative Taver[place] side, no CVA tenderness is noted, she is able to sit up with no pain in her back, SLR is are negative to 90?, skin reveals no petechiae rashes. Const: Vital Signs, click to edit/add: Vital Signs - 24 hr 01/07/25 17:57 Temperature 98.4 F Pulse Rate [Pulse Oximeter] 102 H Respiratory Rate 18 Blood Pressure [Ri ght Upper Arm] 125/76 Pulse Oximetry 100 Oxygen Delivery Me thod Room Air Documenting provider has reviewed patient's vital signs: yes Course Course ED Course: I discussed with her, the process I would suggest an IV, blood tests urine test. At this point. I would also suggest Tylenol, and maybe help her discomfort which is safe in . She was comfortable with this plan. I will update her on her laboratory work and use shared decision making. Reevaluation(s) Time of Reevaluation #1: 19:53 Reevaluation #1: Patient feels a lot better after Tylenol and IV fluids, her urinalysis came back showing some ketones but otherwise negative, white count normal CRP basically normal, procal normal also. Her white count was normal also. Given what I see and a HCG quantitative of 2294 I think with her right lower quadrant pain we need to rule out ectopic, ultrasound is been contacted. I think there is a lower chance of this is appendicitis although that I think that will need to be followed up also. But given the fact that she is , early on I do not think CT scanning is indicated. Time of Reevaluation #2: 21:51 Reevaluation #2: I reviewed with her that her abdominal pain is improved with 2 L of fluid in the Tylenol, her ultrasound shows a small corpus luteum cyst on the right side could not 100% rule out ectopic but this is felt to be unlikely, and she had a very small intrauterine cystic could be an early gestational sac I then reviewed with the case with our OBGYN doctor she felt that this was unlikely but still possible, she would recommend being seen mid week, obviously ectopic precautions, given to patient along with of 48 hour beta hCG. I then discussed with patient, they were comfortable with this. They will return if increasing abdominal pain or other issues Vital Signs Vital signs: Initial Vital Signs Temperature 98.4 F 01/07/25 17:57 Temperature Source Temporal Artery Scan 01/07/25 17:57 Pulse Rate 102 H 01/07/25 17:57 Pulse Rhythm Regular 01/07/25 17:57 Respiratory Rate 18 01/07/25 17:57 Blood Pressure 125/76 01/07/25 17:57 Blood Pressure Mean 92 01/07/25 17:57 Blood Pressure Position High-Fowlers 01/07/25 17:57 Pulse Oximetry 100 01/07/25 17:57 Oxygen Delivery Method Room Air 01/07/25 17:57 Vital Signs Temperature 98.4 F 01/07/25 17:57 Pulse Rate 102 H 01/07/25 17:57 Respiratory Rate 18 01/07/25 17:57 Blood Pressure 125/76 01/07/25 17:57 Pulse Oximetry 100 01/07/25 17:57 Oxygen Delivery Method Room Air 01/07/25 17:57 Temperature 98.4 F 01/07/25 17:57 Pulse Rate 102 H 01/07/25 17:57 Respiratory Rate 18 01/07/25 17:57 Blood Pressure 125/76 01/07/25 17:57 Pulse Oximetry 100 01/07/25 17:57 Oxygen Delivery Method Room Air 01/07/25 17:57 Medications Administered Medications: Discontinued Medications Generic Name Dose Route Start Last Admin Trade Name Freq PRN Reason Stop Dose Admin Acetaminophen 1,000 mg 01/07/25 18:21 01/07/25 18:33 Acetaminophen 500 Mg Tablet PO 01/07/25 18:22 1,000 mg ONCE ONE Administration Sodium Chloride 1,000 mls @ 1,000 mls/hr 01/07/25 18:30 01/07/25 19:57 0.9 % Sodium Chloride 1000 Ml IV 01/07/25 19:29 Infused .Q1H ROXY Infusion Sodium Chloride 1,000 mls @ 1,000 mls/hr 01/07/25 18:45 01/07/25 21:01 0.9 % Sodium Chloride 1000 Ml IV 01/07/25 19:44 Infused .Q1H ROXY Infusion MDM - OB/Uterine Contractions MDM Narrative Medical decision making narrative: During the evaluation of this patient I considered multiple differential diagnosis including life-threatening differentials which are appendicitis, aortic aneurysm, mesenteric ischemia, bowel perforation, ectopic , volvulus and bowel obstruction, other differential diagnosis include but are not limited to inflammatory bowel disease, cholecystitis, pancreatitis, hepatitis, gastritis, GERD, diverticulitis, peptic ulcer disease, pyelonephritis/UTI, renal colic/stone, pelvic inflammatory disease, cervicitis, endometritis, intrauterine , dysfunctional uterine bleeding, ovarian cyst/torsion, spontaneous as well as other etiologies Medical Records Attestation: I reviewed the patient's medical records. Lab Data Attestation: I reviewed the patient's lab results. Labs: Lab Results 01/07/25 01/07/25 01/07/25 Range/Units 18:25 18:32 18:37 WBC 5.19 (4.50-11.00) K/uL RBC 4.57 (4.00-5.20) m/uL Hgb 13.3 (12.0-16.0) gm/dL Hct 39.9 (33.0-51.0) % MCV 87 (80-100) fL MCH 29 (26-34) pg MCHC 33 (32-36) gm/dL RDW Coeff of Elisabeth 12.4 (11.5-15.5) % Plt Count 247 (140-440) K/uL Neut % (Auto) 67.8 (42.0-72.0) % Lymph % (Auto) 18.7 L (20-44) % [place] % (Auto) 11.8 H (0.0-11.0) % Eos % (Auto) 1.3 (0.0-7.0) % Baso % (Auto) 0.4 (0.0-3.0) % Neut # (Auto) 3.52 (1.7-7.0) K/uL Lymph # (Auto) 1.00 (0.90-2.90) K/uL [place] # (Auto) 0.60 (0.00-0.90) K/UL Eos # (Auto) 0.07 (0.00-0.50) K/uL Baso # (Auto) 0.02 (0.00-0.30) K/uL Abs Immat Gran (auto) 0.00 (0.00-0.30) K/uL Imm/Tot Granulo (auto) 0.0 % Sodium 137 (135-149) mmol/L Potassium 3.4 L (3.6-5.1) mmol/L Chloride 106 (96-114) mmol/L Carbon Dioxide 19 L (20-32) mmol/L Anion Gap 12 (7-15) mEq/L BUN 7 (5-24) mg/dL Creatinine 0.6 (0.5-1.5) mg/dL Estimated Creat Clear 108.43 Estimated GFR 124 ml/min Glucose 81 (60-115) mg/dL Calcium 8.6 (8.4-10.6) mg/dL Total Bilirubin 0.5 (0.1-1.5) mg/dL Direct Bilirubin 0.3 (0.0-0.5) mg/dL AST 31 (12-35) U/L ALT 22 (4-35) U/L Alkaline Phosphatase 66 (40-150) U/L C-Reactive Protein 1.1 H (0.5-1.0) mg/dL Total Protein 6.9 (6.0-8.3) g/dL Albumin 4.3 (3.3-5.0) g/dL Amylase 73 (18-89) U/L Lipase 105 (23-300) U/L Procalcitonin 0.05 (<0.50) ng/mL HCG, Quant 2294.00 mIU/mL Urine Color (Yellow) Urine Appearance (Clear) Urine pH (5.0-8.5) Ur Specific [place] (1.000-1.030) Urine Protein (Negative) Urine Glucose (UA) (Negative) Urine Ketones (Negative) Urine Blood (Negative) Urine Nitrite (Negative) Urine Bilirubin (Negative) Urine Urobilinogen (0.2-1.0) Ur Leukocyte Esterase (Negative) Urine RBC (0-2) Urine WBC (0-5) Ur Squamous Epith Cells (None-Few) Urine Bacteria (None) SARS-CoV-2 (PCR) Negative SARS-CoV-2 (Negative) Influenza Type A (PCR) Negative PCR FLU A (Negative) Influenza Type B (PCR) Negative PCR FLU B (Negative) RSV (PCR) Negative PCR RSV (Negative) POC Troponin I Cancelled 01/07/25 Range/Units 19:30 WBC (4.50-11.00) K/uL RBC (4.00-5.20) m/uL Hgb (12.0-16.0) gm/dL Hct (33.0-51.0) % MCV (80-100) fL MCH (26-34) pg MCHC (32-36) gm/dL RDW Coeff of Elisabeth (11.5-15.5) % Plt Count (140-440) K/uL Neut % (Auto) (42.0-72.0) % Lymph % (Auto) (20-44) % [place] % (Auto) (0.0-11.0) % Eos % (Auto) (0.0-7.0) % Baso % (Auto) (0.0-3.0) % Neut # (Auto) (1.7-7.0) K/uL Lymph # (Auto) (0.90-2.90) K/uL [place] # (Auto) (0.00-0.90) K/UL Eos # (Auto) (0.00-0.50) K/uL Baso # (Auto) (0.00-0.30) K/uL Abs Immat Gran (auto) (0.00-0.30) K/uL Imm/Tot Granulo (auto) % Sodium (135-149) mmol/L Potassium (3.6-5.1) mmol/L Chloride (96-114) mmol/L Carbon Dioxide (20-32) mmol/L Anion Gap (7-15) mEq/L BUN (5-24) mg/dL Creatinine (0.5-1.5) mg/dL Estimated Creat Clear Estimated GFR ml/min Glucose (60-115) mg/dL Calcium (8.4-10.6) mg/dL Total Bilirubin (0.1-1.5) mg/dL Direct Bilirubin (0.0-0.5) mg/dL AST (12-35) U/L ALT (4-35) U/L Alkaline Phosphatase (40-150) U/L C-Reactive Protein (0.5-1.0) mg/dL Total Protein (6.0-8.3) g/dL Albumin (3.3-5.0) g/dL Amylase (18-89) U/L Lipase (23-300) U/L Procalcitonin (<0.50) ng/mL HCG, Quant mIU/mL Urine Color Yellow (Yellow) Urine Appearance Clear (Clear) Urine pH 6.0 (5.0-8.5) Ur Specific [place] 1.015 (1.000-1.030) Urine Protein Negative (Negative) Urine Glucose (UA) Negative (Negative) Urine Ketones 2+ A (Negative) Urine Blood 1+ A (Negative) Urine Nitrite Negative (Negative) Urine Bilirubin Negative (Negative) Urine Urobilinogen 0.2 (0.2-1.0) Ur Leukocyte Esterase Negative (Negative) Urine RBC 2-5 A (0-2) Urine WBC 2-5 (0-5) Ur Squamous Epith Cells None (None-Few) Urine Bacteria Few A (None) SARS-CoV-2 (PCR) (Negative) Influenza Type A (PCR) (Negative) Influenza Type B (PCR) (Negative) RSV (PCR) (Negative) POC Troponin I Imaging Data Transvaginal ultrasound: Attestation: I have reviewed the pertinent imaging results. Radiologist's impression: [place] [address] Diagnostic Imaging Report Patient: Cristel Velasquez MR#: [id number] : 1995 Acct:[id number] Loc: ED Service Date: 01/07/[address]: Ordering Physician: Artie Quinn M.D. Date of Service: 01/07/25 Procedure(s): US OB transvaginal Accession Number(s): [id number] cc: Sumit Floyd M.D.; Artie Quinn M.D.~ For Patients: As a result of the Cures Act, medical imaging exams and procedure reports are released immediately into your electronic medical record. You may view this report before your referring provider. If you have questions, please contact your health care provider. INDICATION: Generalized pelvic pain. TECHNIQUE: Ultrasound OB pelvis transabdominal and transvaginal. Real-time donahue-scale imaging of the pelvis was performed. COMPARISON: None. FINDINGS: There is a tiny intrauterine cystic lesion, measuring 3 millimeters, possibly early gestational sac. No pole or heart rate identified at this time. The ovaries are of normal size. Probable 2.4 centimeter right ovarian corpus luteal cyst. There are no suspicious fluid collections noted in the cul-de-sac. IMPRESSION: Tiny intrauterine cystic lesion, measuring 3 millimeters, possibly early gestational sac. This is too early to confirm dates and viability. Recommend continued trending of beta HCG and short-term follow-up ultrasound. Probable 2.4 centimeter right ovarian corpus luteal cyst. Ectopic is thought less likely, but not entirely excluded. This could also be followed up with on subsequent imaging. Dictated by Mango Gill MD @ 01/07/2025 8:33:58 PM (Electronically Signed) Discharge Plan Discharge Clinical Impression: Abdominal pain, Patient Disposition: Home w/ Parent or Adult Condition: Stable Instructions: Gastroenteritis (ED), Abdominal Pain (ED), Abdominal Pain in (ED) Additional Instructions: As I discussed with you I believe you have a couple different issues going on 1. The with the right corpus luteum cyst, causing use some mild discomfort, and the abdominal pain which I believe is likely more of a GI. All your laboratory tests were reasonable, this does not totally rule out appendicitis been makes a lot less likely, think home rest fluids Tylenol which is safe in would be reasonable choice here I did talk to her OBGYN Dr. Gutierrez she suggested that she contact the OB Clinic tomorrow, and arrange to have a repeat beta HCG done in 48 hours. She also thinks that she should be seen mid week to make sure your not worse, increasing abdominal,blue vaginal bleeding, passing out or all symptoms that I think he should come back immediately to the emergency room. Activity Level: Light activity Discharge Diet: Clear Liquid Prescriptions: No Action ZOB-tkmh-VQ-omega 3-fat com #1 27-1-300 mg capsule PO DAILY levothyroxine 25 mcg tablet 25 mcg PO DAILY Qty: 90 0RF Follow Up/Referrals: Sumit Floyd MD [Primary Care Provider] - Stand Alone Forms: [employer] Info Instructions
[2025-01-07] MEDS: ACETAMINOPHEN 500 MG TABLET 1000 MG PO (18:33)
[2025-01-07] MEDS: 0.9 % SODIUM CHLORIDE 1000 ml 1,000 ML IV ×2 (18:36→20:00)
[2025-01-07 18:54] LABS: Basophils Absolute Auto 0.02 K/uL (0.00-0.30); Basophils Percent Auto 0.4 % (0.0-3.0); Eosinophils Absolute Auto 0.07 K/uL (0.00-0.50); Eosinophils Percent Auto 1.3 % (0.0-7.0); Hematocrit 39.9 % (33.0-51.0); Hemoglobin* 13.3 gm/dL (12.0-16.0); Lymphocytes Percent Auto 18.7 % (20-44); Mean Corpuscular HGB Conc 33 gm/dL (32-36); Mean Corpuscular Hemoglobin 29 pg (26-34); Mean Corpuscular Volume 87 fL (80-100); Monocytes Percent Auto 11.8 % (0.0-11.0); Neutrophils Absolute Auto 3.52 K/uL (1.7-7.0); Neutrophils Percent Auto 67.8 % (42.0-72.0); Platelet Count* 247 K/uL (140-440); RDW Coefficient of Variation % 12.4 % (11.5-15.5); Red Blood Count 4.57 m/uL (4.00-5.20); White Blood Count* 5.19 K/uL (4.50-11.00)
[2025-01-07 19:07] LABS: Slide Review Reflex No
[2025-01-07 19:07] LABS: PCR FLU A Negative PCR FLU A (Negative); PCR FLU B Negative PCR FLU B (Negative); PCR RSV Negative PCR RSV (Negative); SARS PCR* Negative SARS-CoV-2 (Negative)
[2025-01-07 19:12] LABS: Albumin* 4.3 g/dL (3.3-5.0); Chloride* 106 mmol/L (96-114); Sodium* 137 mmol/L (135-149)
[2025-01-07 19:13] LABS: Potassium* 3.4 mmol/L (3.6-5.1)
[2025-01-07 19:15] LABS: Amylase* 73 U/L (18-89)
[2025-01-07 19:16] LABS: Alanine Aminotransferase* 22 U/L (4-35); Alkaline Phosphatase* 66 U/L (40-150); Anion Gap 12 mEq/L (7-15); Aspartate Amino Transferase* 31 U/L (12-35); Bilirubin Direct* 0.3 mg/dL (0.0-0.5); Bilirubin Total* 0.5 mg/dL (0.1-1.5); Blood Urea Nitrogen* 7 mg/dL (5-24); Calcium* 8.6 mg/dL (8.4-10.6); Carbon Dioxide* 19 mmol/L (20-32); Creatinine* 0.6 mg/dL (0.5-1.5); Est. Creatinine Clearance* 108.43; Estimated Glomerular Filt Rate 124 ml/min; Glucose* 81 mg/dL (60-115); Lipase* 105 U/L (23-300); Total Protein* 6.9 g/dL (6.0-8.3)
[2025-01-07 19:19] LABS: C Reactive Protein* 1.1 mg/dL (0.5-1.0)
[2025-01-07 19:33] LABS: Procalcitonin* 0.05 ng/mL (<0.50)
--- NOTE | 2025-01-07 19:36 | CRLHL7_ITS ---
For Patients: As a result of the Century Cures Act, medical imaging exams and procedure reports are released immediately into your electronic medical record. You may view this report before your referring provider. If you have questions, please contact your health care provider. INDICATION: Generalized pelvic pain. TECHNIQUE: Ultrasound OB pelvis transabdominal and transvaginal. Real-time donahue-scale imaging of the pelvis was performed. COMPARISON: None. FINDINGS: There is a tiny intrauterine cystic lesion, measuring 3 millimeters, possibly early gestational sac. No pole or heart rate identified at this time. The ovaries are of normal size. Probable 2.4 centimeter right ovarian corpus luteal cyst. There are no suspicious fluid collections noted in the cul-de-sac. IMPRESSION: Tiny intrauterine cystic lesion, measuring 3 millimeters, possibly early gestational sac. This is too early to confirm dates and viability. Recommend continued trending of beta HCG and short-term follow-up ultrasound. Probable 2.4 centimeter right ovarian corpus luteal cyst. Ectopic is thought less likely, but not entirely excluded. This could also be followed up with on subsequent imaging. Dictated by Mango Gill MD @ 01/07/2025 8:33:58 PM (Electronically Signed)
[2025-01-07 19:37] LABS: Appearance Urine Clear (Clear); Bilirubin Urine Negative (Negative); Blood Urine 1+ (Negative); Color Urine Yellow (Yellow); Glucose Urine Negative (Negative); Ketones Urine 2+ (Negative); Leukocyte Esterase Urine Negative (Negative); Nitrite Urine Negative (Negative); Protein Urine Negative (Negative); Specific Gravity Urine 1.015 (1.000-1.030); Urobilinogen Urine 0.2 (0.2-1.0)
[2025-01-07 19:50] LABS: Bacteria Urine Few
== END 2025-01-07 21:32 | disposition home or self-care (01) ==
PROVIDERS: Emergency Provider Family Medicine; PCP Family Medicine
DX: R10.9 Unspecified abdominal pain (principal)
CPT/HCPCS: 36415; 76817; 80048; 80076; 81001; 82150; 83690; 84145; 84484; 84702; 85025; 86140; 87086; 87631; 93976; 96360; 96361; 99284; A9270; J7030

== ENCOUNTER 2025-01-09 16:14 | Outpatient (CLI) | payer BC, SELFPAY | END 2025-01-09 16:15 | disposition home or self-care (01) | LOC: NFLDREF 01-15 01:52 | PROVIDERS: PCP Family Medicine; Referring Provider Family Medicine; Visit Provider Obstetrics & Gynecology | DX: R10.9 Unspecified abdominal pain (principal) | CPT/HCPCS: 84702 ==

== ENCOUNTER 2025-01-10 13:34 | Outpatient (CLI) | payer BC, SELFPAY ==
--- NOTE | 2025-01-10 13:45 | CRLHL7_ITS ---
For Patients: As a result of the Century Cures Act, medical imaging exams and procedure reports are released immediately into your electronic medical record. You may view this report before your referring provider. If you have questions, please contact your health care provider. OBSTETRICAL ULTRASOUND TRANSVAGINAL, 01/10/2025 CLINICAL INDICATION: Follow-up location and viability. LMP: 12/06/2024 JOHNNY by LMP: 09/12/2025 Gestational age: 5 weeks 0 days Previous ultrasound: Yes, 01/07/2025 JOHNNY by ultrasound: N/A (only gestational sac visualized) TECHNIQUE: Real-time donahue-scale imaging of the fetus was performed transvaginal. FINDINGS: CRL: Not visualized heart rate: N/A Gestational sac: 0.66 cm, appears within normal limits Yolk sac: Not visualized Right ovary: 3.5 x 2.6 x 2.2 cm, CL Left ovary: 2.7 x 1.4 x 2.0 cm IMPRESSION: Intrauterine gestational sac may be present measuring 6.6 mm, 5 weeks 3 days. No pole. No yolk sac. No subchorionic hemorrhage. Corpus luteal cyst of right ovary. JAUN JERRY M.D. Diagnostic Radiologist [email or web address] Transcribed: 4:[address]/Dictated by: Jaun Jerry MD @ 01/10/2025 3:15:00 PM (Electronically Signed)
== END 2025-01-10 13:35 | disposition home or self-care (01) ==
LOC: US 13:34
PROVIDERS: PCP Family Medicine; Visit Provider Obstetrics & Gynecology
DX: Z34.91 Encounter for supervision of normal pregnancy, unspecified, first trimester (principal); Z3A.01 Less than 8 weeks gestation of pregnancy
CPT/HCPCS: 76817

== ENCOUNTER 2025-01-17 12:07 | Outpatient (CLI) | payer BC, SELFPAY ==
--- NOTE | 2025-01-17 12:15 | CRLHL7_ITS ---
For Patients: As a result of the Century Cures Act, medical imaging exams and procedure reports are released immediately into your electronic medical record. You may view this report before your referring provider. If you have questions, please contact your health care provider. OB ULTRASOUND FIRST TRIMESTER TRANSVAGINAL FOLLOW-UP INDICATION: Follow-up viability. TECHNIQUE: Real time donahue scale imaging of the fetus was performed. Transvaginal. LMP: 12/06/2024. JOHNNY by LMP: 09/12/2025. GA: 6 w, 0 d. Previous US: Yes, 01/10/2025. JOHNNY by US: N/A, only gestational sac visualized. CRL: .23 cm. 5 w 5 d. JOHNNY: 09/14/2025. FHR: 108 BPM. Gestational sac: 1.5 cm. Appears within normal limits. Yolk sac: 3.4 mm. Appears within normal limits. Right ovary: Within normal limits. 3.4 x 2.0 x 2.2 cm. CL. Left ovary: Within normal limits. 2.6 x 1.3 x 1.7 cm. COMMENT: Single live IUP. IMPRESSION: Sonographic gestational age 5 weeks 5 days with a sonographic due date 09/14/2025. heart rate lower limits of normal at 108 beats per second. Follow-up in 2-3 weeks recommended. Jaun Heredia M.D. Diagnostic Radiologist [email or web address] SP/Dictated by: Jaun Heredia MD @ 01/18/2025 8:10:00 PM (Electronically Signed)
== END 2025-01-17 12:08 | disposition home or self-care (01) ==
LOC: US 12:08
PROVIDERS: PCP Family Medicine; Visit Provider Obstetrics & Gynecology
DX: Z34.91 Encounter for supervision of normal pregnancy, unspecified, first trimester (principal); Z3A.01 Less than 8 weeks gestation of pregnancy
CPT/HCPCS: 76817

== ENCOUNTER 2025-01-29 12:49 | Emergency (ER) | payer BC, SELFPAY ==
[2025-01-29 13:02] VITALS: BP 116/76; PULSE 100; RESP 22; TEMP 36.5; O2SAT 99; BMI 27.4
--- NOTE | 2025-01-29 13:14 | CRLHL7_ITS ---
For Patients: As a result of the Century Cures Act, medical imaging exams and procedure reports are released immediately into your electronic medical record. You may view this report before your referring provider. If you have questions, please contact your health care provider. Indication: 7 weeks gestation, bleeding and cramping LMP: 12/06/2024. Technique: Real-time sonographic images of the pelvis were obtained transvaginally using grayscale, color, and Doppler imaging. Comparison: 01/17/2025. Findings: Uterus: 3.3 x 1.3 x 1.8 centimeter superior subchorionic hemorrhage. Gestational sac: Mean sac diameter measures 2.6 centimeter. pole: [place]-rump length measures 1.5 centimeter, compatible with an average ultrasound age of 7 weeks 6 days. Yolk sac: Present. heart rate: 163 beats/min. Right ovary: Size: 3.8 x 2.1 x 2.2 centimeter. Appearance: Normal morphology. 2.1 x 2.5 x 2.0 centimeter corpus luteum. Left ovary: Size: 3.1 x 1.4 x 1.5 centimeter. Appearance: Normal morphology. No masses. Bladder: Visualized bladder is normal. Other: No free fluid. Impression: 1. Single live intrauterine with crown-rump length corresponding to 7 weeks 6 days. 2. 3.3 x 1.3 x 1.8 centimeter superior subchorionic hemorrhage. Dictated by Felice Thomas MD @ 01/29/2025 2:34:03 PM (Electronically Signed)
--- NOTE | 2025-01-29 13:16 | ED_ITS ---
HPI - General Chief complaint: OB/Uterine Contractions Stated complaint: 7 weeks , cramping Time Seen by Provider: 01/29/25 12:54 History of Present Illness HPI Narrative: This 29-year-old female is about 7 weeks and comes in reporting rather sudden onset of right-sided abdominal and flank pain that is somewhat constant but definitely has crampy component to it. She states the pain now is more localized in the left lower quadrant. She also had some vaginal discharge that she thinks was blood but uncertain given the color of her clothing. She states her has been progressing normally but has had significant nausea and difficulty taking fluids as a result. Related Data Home Medications ?Medication ?Instructions ?Recorded ?Confirmed [id number]-[id number]-omega 3-fat com #1 27 cap PO DAILY 12/12/24 01/17/25 mg-1 mg-300 mg capsule Previous Rx's ?Medication ?Instructions ?Recorded levothyroxine 25 mcg tablet 25 mcg PO DAILY #90 tabs 10/23/24 Allergies Allergy/AdvReac Type Severity Reaction Status Date / Time No Known Allergies Allergy Verified 01/17/25 13:41 Review of Systems Status of ROS: Reports: 10 or more systems reviewed and unremarkable except as noted in History and below Narrative: Constitutional: No fevers, no weight gain or loss. Eyes: No discharge. No vision changes. HENT: No congestion, no sore throat, no ear pain. Cardiovascular: No chest pain, no palpitations. Respiratory: No shortness of breath, no wheezes, no cough. Gastrointestinal: No diarrhea. Abdominal pain as described above. Genitourinary: No dysuria, no hematuria. Musculoskeletal: Normal range of motion. Skin: No rashes, no pruritis. Neurological: No dizziness, weakness, sensory change, speech change. Endo/Heme/Allergies: No bruising. No polydipsia. Pysch: no suicidality, no anxiety, no insomnia. All other systems reviewed and are negative. [facility] Medical History Hypothyroid ?E03.9 - Hypothyroidism, unspecified (ICD-10) Dysmenorrhea (04/04/12) ?N94.6 - Dysmenorrhea, unspecified (ICD-10) Surgical History H/O laparoscopy ?Z98.890 - Other specified postprocedural states (ICD-10) Family History Father Diabetes Social History Narrative: SOCIAL HISTORY: Occupation: Occupational therapist at [employer] Marital status: . Partner: Leoncio. Lives with: . Pets: Cat and dog. Zoroastrianism/cultural needs: No. Chemical or radiation exposure: No. Pre- tobacco use: No. Pre- alcohol use: No. Current tobacco use: No. Current alcohol use: No. Recreational drug use: No. Dietary restrictions: No. Blood transfusion acceptable in an emergency: Yes. Planning to breastfeed: Yes. Smoking Status: Never smoker Do you use any of these nicotine containing products: None Second hand tobacco smoke exposure: No How often do you have a drink containing alcohol: never How often do you have six or more drinks on one occasion: Never AUDIT-C Alcohol total score: 0 Non-prescribed substance use: denies use service: No Exam Narrative: Exam Narrative: Constitutional: Well-developed, well-nourished, no acute distress. HEENT: Normocephalic, atraumatic. Neck: Normal range of motion. Nontender. Supple. Heart: Regular. No murmurs. Normal rate. Intact distal pulses. Lungs: Clear to auscultation. No chest discomfort. No wheezes, rhonchi, or rales. Abdomen: Normal bowel sounds. Tenderness in the left lower quadrant. No rebound tenderness. Genitalia: Deferred. Back: No midline tenderness. Normal range of motion. Extremities: Normal range of motion. No injury. Skin: Intact. No rash. Warm. No erythema or pallor. Neurologic: No altered sensation. No weakness. Alert and oriented. Psychiatric: No suicidality. No anxiety or depression. No insomnia. Nursing notes and vitals signs are reviewed. Const: Vital Signs, click to edit/add: Vital Signs - 24 hr 01/29/25 13:02 Temperature 97.7 F Pulse Rate [Pulse Oximeter] 100 Respiratory Rate 22 Blood Pressure [Le ft Upper Arm] 116/76 Pulse Oximetry 99 Oxygen Delivery Me thod Room Air Course Vital Signs Vital signs: Initial Vital Signs Temperature 97.7 F 01/29/25 13:02 Temperature Source Temporal Artery Scan 01/29/25 13:02 Pulse Rate 100 01/29/25 13:02 Respiratory Rate 22 01/29/25 13:02 Blood Pressure 116/76 01/29/25 13:02 Blood Pressure Mean 89 01/29/25 13:02 Blood Pressure Position Sitting 01/29/25 13:02 Pulse Oximetry 99 01/29/25 13:02 Oxygen Delivery Method Room Air 01/29/25 13:02 Vital Signs Temperature 97.7 F 01/29/25 13:02 Pulse Rate 100 01/29/25 13:02 Respiratory Rate 22 01/29/25 13:02 Blood Pressure 116/76 01/29/25 13:02 Pulse Oximetry 99 01/29/25 13:02 Oxygen Delivery Method Room Air 01/29/25 13:02 Temperature 97.7 F 01/29/25 13:02 Pulse Rate 100 01/29/25 13:02 Respiratory Rate 22 01/29/25 13:02 Blood Pressure 116/76 01/29/25 13:02 Pulse Oximetry 99 01/29/25 13:02 Oxygen Delivery Method Room Air 01/29/25 13:02 Medications Administered Medications: Discontinued Medications Generic Name Dose Route Start Last Admin Trade Name Vinceq PRN Reason Stop Dose Admin Sodium Chloride 1,000 mls @ 1,000 mls/hr 01/29/25 13:15 01/29/25 13:55 0.9 % Sodium Chloride 1000 Ml IV 01/29/25 14:14 1,000 mls/hr .Q1H ROXY Administration MDM - OB/Uterine Contractions MDM Narrative Medical decision making narrative: This 29-year-old female comes in reporting rather sudden onset of vaginal discharge as she is 7 weeks . She has also had some crampy abdominal pain. She states that the pain was rather severe at 1st but now is not so discomforting. An ultrasound is obtained and shows normal intrauterine and also evidence of subchorionic hemorrhage. The patient did receive a L of normal saline intravenously. Her complete blood count returns with normal findings. She states that she is Rh positive in her blood type. I did relate the unofficial report from the loader helper sorting yard to the patient and her and they are satisfied and reassured with these comments. Results from the radiologist and from her beta hCG quantitative level have not yet returned but the patient states that she feels okay to return home. I advised her to follow- up with OBGYN clinic this week or to return if worsening symptoms occur. Lab Data Labs: Lab Results 01/29/25 Range/Units 13:25 WBC 8.79 (4.50-11.00) K/uL RBC 4.70 (4.00-5.20) m/uL Hgb 13.7 (12.0-16.0) gm/dL Hct 40.5 (33.0-51.0) % MCV 86 (80-100) fL MCH 29 (26-34) pg MCHC 34 (32-36) gm/dL RDW Coeff of Elisabeth 12.4 (11.5-15.5) % Plt Count 308 (140-440) K/uL Neut % (Auto) 76.5 H (42.0-72.0) % Lymph % (Auto) 16.4 L (20-44) % [place] % (Auto) 6.3 (0.0-11.0) % Eos % (Auto) 0.5 (0.0-7.0) % Baso % (Auto) 0.2 (0.0-3.0) % Neut # (Auto) 6.70 (1.7-7.0) K/uL Lymph # (Auto) 1.40 (0.90-2.90) K/uL [place] # (Auto) 0.60 (0.00-0.90) K/UL Eos # (Auto) 0.04 (0.00-0.50) K/uL Baso # (Auto) 0.02 (0.00-0.30) K/uL Abs Immat Gran (auto) 0.01 (0.00-0.30) K/uL Imm/Tot Granulo (auto) 0.1 % Discharge Plan Discharge Clinical Impression: Subchorionic hemorrhage Patient Disposition: Home, Self-Care Condition: Stable Additional Instructions: Continue current plans. Follow up with OBGYN clinic for further evaluation and treatment. Return if worsening. Prescriptions: No Action WJS-lowx-CW-omega 3-fat com #1 27-1-300 mg capsule PO DAILY levothyroxine 25 mcg tablet 25 mcg PO DAILY Qty: 90 0RF Follow Up/Referrals: Sumit Floyd MD [Primary Care Provider] - Stand Alone Forms: [employer] Info Instructions
[2025-01-29 13:34] LABS: Basophils Absolute Auto 0.02 K/uL (0.00-0.30); Basophils Percent Auto 0.2 % (0.0-3.0); Eosinophils Absolute Auto 0.04 K/uL (0.00-0.50); Eosinophils Percent Auto 0.5 % (0.0-7.0); Hematocrit 40.5 % (33.0-51.0); Hemoglobin* 13.7 gm/dL (12.0-16.0); Immature Granulocytes Abs Auto 0.01 K/uL (0.00-0.30); Immature Granulocytes Pct Auto 0.1 %; Lymphocytes Percent Auto 16.4 % (20-44); Mean Corpuscular HGB Conc 34 gm/dL (32-36); Mean Corpuscular Hemoglobin 29 pg (26-34); Mean Corpuscular Volume 86 fL (80-100); Monocytes Percent Auto 6.3 % (0.0-11.0); Neutrophils Percent Auto 76.5 % (42.0-72.0); Platelet Count* 308 K/uL (140-440); RDW Coefficient of Variation % 12.4 % (11.5-15.5); White Blood Count* 8.79 K/uL (4.50-11.00)
[2025-01-29 13:38] LABS: Slide Review Reflex No
[2025-01-29] MEDS: 0.9 % SODIUM CHLORIDE 1000 ml 1,000 ML IV (13:55)
== END 2025-01-29 15:04 | disposition home or self-care (01) ==
LOC: ED 14:48
PROVIDERS: Emergency Provider Emergency Medicine Emergency Medical Services; PCP Family Medicine
DX: O46.8X1 Other antepartum hemorrhage, first trimester (principal); Z3A.01 Less than 8 weeks gestation of pregnancy
CPT/HCPCS: 36415; 76817; 84702; 85025; 96360; 99283; 99284; J7030

== ENCOUNTER 2025-02-06 13:47 | Outpatient (CLI) | payer BC, SELFPAY ==
--- NOTE | 2025-02-06 14:00 | CRLHL7_ITS ---
For Patients: As a result of the Cures Act, medical imaging exams and procedure reports are released immediately into your electronic medical record. You may view this report before your referring provider. If you have questions, please contact your health care provider. LMP: 12/06/2024. JOHNNY by LMP: 09/12/2025. GA: 8w, 6d. Previous US: 01/29/2025. JOHNNY by US: 09/11/2025. GA: 7w, 6d. INDICATION: Follow-up, dating and viability, ROXY. CRL: 2.3 cm. 9w, 0d. JOHNNY 09/11/2025. FHR: 178 bpm. GESTATIONAL SAC: 3.5 cm, appears within normal limits. YOLK SAC: 4.8 mm, appears within normal limits. RIGHT OVARY: 3.7 x 1.8 x 2.1 cm, CL. LEFT OVARY: 2.7 x 1.4 x 1.4 cm. IMPRESSION: 1. Single living intrauterine measuring 9 weeks 0 days and sonographic due date 09/11/2025. 2. Subchorionic hemorrhage is present superiorly measuring 2.6 x 1.9 x 0.7 cm. 3. Incidental cystic area within the developing placenta noted measuring 4 x 6 x 6 mm. Jaun Heredia M.D. Diagnostic Radiologist [email or web address] MACIE/matilde / bM/Dictated by: Jaun Heredia MD @ 02/06/2025 8:16:00 PM (Electronically Signed)
== END 2025-02-06 13:48 | disposition home or self-care (01) ==
LOC: US 13:47
PROVIDERS: PCP Family Medicine; Visit Provider Physician Assistant
DX: Z34.91 Encounter for supervision of normal pregnancy, unspecified, first trimester (principal); O20.9 Hemorrhage in early pregnancy, unspecified; Z3A.09 9 weeks gestation of pregnancy
CPT/HCPCS: 76817; 83021; 84443; 86592; 86703; 86704; 86706; 86762; 86787; 86803; 86850; 86900; 86901; 87086; 87340; 87491; 87591; 87624; 88142

== ENCOUNTER 2025-03-12 09:10 | Outpatient (CLI) | payer BC, SELFPAY | END 2025-03-12 09:11 | disposition home or self-care (01) | LOC: NFLDREF 16:14 | PROVIDERS: Referring Provider Family Medicine; Visit Provider Advanced Practice Midwife | DX: E03.9 Hypothyroidism, unspecified (principal) | CPT/HCPCS: 84443 ==

== ENCOUNTER 2025-04-25 08:56 | Outpatient (CLI) | payer BC, SELFPAY ==
--- NOTE | 2025-04-25 09:15 | CRLHL7_ITS ---
For Patients: As a result of the Century Cures Act, medical imaging exams and procedure reports are released immediately into your electronic medical record. You may view this report before your referring provider. If you have questions, please contact your health care provider. OB ULTRASOUND JOHNNY by LMP: 09/12/2025. GA: 20 w, 0 d. Single. Comparison: 02/06/2025, 01/29/2025, 01/17/2025. INDICATION: BPAS. TECHNIQUE: Real time donahue scale imaging of the fetus was performed. Transabdominal. CERVIX: Visualized. Measurement: 4 cm. POSITIONING: Multiple positions. AMNIOTIC FLUID: 4.8 cm. SDP (N: greater than 2 x 1 cm) Umbilical: 3-Vessel marginal 1.6 cm left wall. PLACENTA: Technique: Transabdominal. PLACENTA POSITION: Posterior. Placental tip to internal os: 2.3 cm. DOPPLER: heart rate: 149 bpm. Less than 28 w = 5.0. 28-34 w = less than 4.0. Greater than 34 we = less than 3.5. SURVEY: Observed Structures. Cerebellum: 2 cm, 20 w 2 d. Cisterna Magna: 3.5 mm. Nuchal Fold: 3.4 mm. Lateral Ventricle: 6.4 mm. CSP: Yes. Midline Falx: Yes. Choroid Plexus: Yes. Spine: Yes. Abdomen: Stomach: Yes. Abd Cord Insertion: Yes. Urinary Bladder: Yes. Kidneys: Yes. Diaphragm: Yes. Face: Nose/lips: Yes. Orbital view: Yes. Profile: Yes. Limbs: Upper Extremities: Yes. Lower Extremities: Yes. Hands: Yes. Feet: Yes. Vascular: 4-Chamber Heart: Yes. LVOT: Yes. RVOT: Yes. 3VV: Yes. 3VTV: Yes. BIOMETRY: BPD: 4.7 cm. 20 w, 1 d, 56 percent. HC: 17.7 cm. 20 w, 1 d, 51 percent. AC: 16.1 cm. 21 w, 1 d, 81 percent. FL: 3.1 cm. 19 w, 4 d, 29 percent. FL/AC ratio: 19.28 percent. HC/AC ratio: 1.10. EFW: 353 g. Weight: 12 oz. 70 percent. FINDINGS: The placental cord insertion is 1.6 cm from the placental edge. IMPRESSION: 1. Single live intrauterine gestation at 20 weeks 2 days JOHNNY of 09/10/2025. 2. Estimated weight is 353 grams which lies at the 78th percentile. No gross anomalies visualized. 3. Placental cord insertion 1.6 cm from the placental edge. Ca Gilbert M.D. Diagnostic/Breast Radiologist [email or web address] Transcribed: 7:50 a.m. JR/Dictated by: Ca Gilbert MD @ 04/30/2025 5:51:00 AM (Electronically Signed)
== END 2025-04-25 08:57 | disposition home or self-care (01) ==
LOC: US 08:56
PROVIDERS: Visit Provider Advanced Practice Midwife
DX: Z34.92 Encounter for supervision of normal pregnancy, unspecified, second trimester (principal); O43.192 Other malformation of placenta, second trimester; Z3A.20 20 weeks gestation of pregnancy
CPT/HCPCS: 76805; 84443

== ENCOUNTER 2025-06-18 08:06 | Outpatient (CLI) | payer BC, SELFPAY | END 2025-06-18 08:07 | disposition home or self-care (01) | LOC: NFLDREF 06-22 03:39 | PROVIDERS: Visit Provider Advanced Practice Midwife | DX: Z34.93 Encounter for supervision of normal pregnancy, unspecified, third trimester (principal); E03.9 Hypothyroidism, unspecified | CPT/HCPCS: 84443; 86592 ==

== ENCOUNTER 2025-06-21 07:57 | Outpatient (CLI) | payer BC, SELFPAY | END 2025-06-21 07:58 | disposition home or self-care (01) | LOC: NFLDREF 06-27 06:19 | PROVIDERS: Visit Provider Advanced Practice Midwife | DX: Z34.93 Encounter for supervision of normal pregnancy, unspecified, third trimester (principal); R73.09 Other abnormal glucose | CPT/HCPCS: 82951; 82952 ==

== ENCOUNTER 2025-08-14 14:41 | Outpatient (CLI) | payer BC, SELFPAY ==
[2025-08-15 15:00] LABS: Strep B DNA Probe Negative (Negative)
[2025-08-15 17:10] LABS: Strep B Susceptibility Needed? No
== END 2025-08-14 14:42 | disposition home or self-care (01) ==
LOC: NFLDREF 14:42
PROVIDERS: Visit Provider Midwife
DX: Z34.93 Encounter for supervision of normal pregnancy, unspecified, third trimester (principal)
CPT/HCPCS: 87081; 87653

== ENCOUNTER 2025-08-28 11:18 | Outpatient (CLI) | payer BC, SELFPAY ==
--- NOTE | 2025-08-28 11:30 | CRLHL7_ITS ---
For Patients: As a result of the Cures Act, medical imaging exams and procedure reports are released immediately into your electronic medical record. You may view this report before your referring provider. If you have questions, please contact your health care provider. OBSTETRICAL ULTRASOUND ??? FOLLOW-UP INDICATION: Gestational diabetes mellitus. Follow-up growth. CLINICAL HISTORY: JOHNNY by LMP: 09/12/2025 Gestational Age: 37 weeks 6 days COMPARISON: 04/25/2025, 02/06/2025, 01/29/2025. TECHNIQUE: Real-time donahue-scale transabdominal imaging of the fetus was performed. FINDINGS: Fetus: Single positioning: Vertex Amniotic Fluid: 5.2 cm SDP Placenta technique: Transabdominal Placenta position: Posterior heart rate: 138 bpm BIOMETRY: BPD: 9.6 cm, 39 weeks 1 day, 93% HC: 33.9 cm, 38 weeks 6 days, 55% AC: 33.6 cm, 37 weeks 4 days, 58% FL: 7.1 cm, 36 weeks 4 days, 20% FL/AC Ratio: 21.22% HC/AC ratio: 1.01 EFW: 3259 grams; 7 lbs. 3 oz. age by this ultrasound: 38 weeks 0 days JOHNNY by this ultrasound: 09/11/2025 Percentile by JOHNNY: 55% IMPRESSION: 1. Sonographic gestational age is 38 weeks 0 days and sonographic due date is 09/11/2025. Good correlation with dates. Normal interval growth. 2. Estimated weight is 55th percentile. Abdominal circumference is 58th percentile. 3. Marginal placental cord insertion. JAUN JERRY M.D. Diagnostic Radiologist [email or web address] Transcribed: 2:[address]/Dictated by: Jaun Jerry MD @ 08/28/2025 1:12:00 PM (Electronically Signed)
== END 2025-08-28 11:19 | disposition home or self-care (01) ==
LOC: US 11:18
PROVIDERS: Visit Provider Advanced Practice Midwife
DX: O24.419 Gestational diabetes mellitus in pregnancy, unspecified control (principal); Z3A.38 38 weeks gestation of pregnancy
CPT/HCPCS: 76816

== ENCOUNTER 2025-09-17 07:34 | Inpatient (IN) | payer BC, SELFPAY ==
[2025-09-17] VITALS (76 sets, daily range): BP systolic 96–144; BP diastolic 53–82; PULSE 37–108; RESP 16–18; TEMP 36.4–36.7; O2SAT 81–99; BMI 34.9
[2025-09-17 08:06] LABS: Amnisure Rom* POSITIVE
--- NOTE | 2025-09-17 08:34 | W.PM.LDBA ---
Subjective History of Present Illness Time Seen by Provider: 08:34 Date Seen: 09/17/25 Narrative: Patient is being admitted to Labor and Delivery for IOL but she presented with SROM at 0630 this morning. She is a 29 year old at 40.5 weeks gestation. Her full history and physical was dictated by Hussain Fernandez CNM on 08/21/25. Please see this for details. She denies feeling contractions since SROM and states she is continuing to leak small amounts of clear fluid. Reviewed risks and benefits of expectant management with reevaluation around 6 hrs after ROM vs PO Cytotec vs IV Pitocin. Questions answered. Requested SVE and she was 1.5/60/-3 and soft. Bedside US performed to confirm vertex presentation. Specific Issues/Plans Partner: Leoncio . Son: James. It is a girl! H&P: 08/21/25 Hussain Fernandez CNM # hypothyroidism TSH 1st trimester:2.72. Levothyroxine 25 mcg, increase to 50 mcg Repeat TSH in 4 weeks: 1.690 TSH 2nd trimester: 2.78 TSH 3rd trimester: 1.680 # history of macrosomia, 9 lb 3 oz at 41 weeks # Marginal cord insertion, 1.6 cm from edge testing not indicated when >1cm # Failed 1hr GTT Passed 3/4 readings on 3hr but vomited before the 4th was drawn. Given hx of macrosomia and readings on the high end of normal can consider occasional glucose testing at home or growth US later in . Imaginst trimester: 01/29/25 ?Single live intrauterine with crown-rump length corresponding to 7 weeks 6 days. 3.3 x 1.3 x 1.8 centimeter superior subchorionic hemorrhage. Of note she had multiple other US before this dating confirmation for bleeding in early . 02/06/25: Single living intrauterine measuring 9 weeks 0 days and sonographic due date 09/11/2025. Subchorionic hemorrhage is present superiorly measuring 2.6 x 1.9 x 0.7 cm. Incidental cystic area within the developing placenta noted measuring 4 x 6 x 6 mm. Anatomy scan:? Single live intrauterine gestation at 20 weeks 2 days JOHNNY of 09/10/2025. Estimated weight is 353 grams which lies at the 78th percentile. No gross anomalies visualized. Placental cord insertion 1.6 cm from the placental edge. ?? Others: none? 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 ?at?40.5?weeks gestation? GBS?negative? complicated by: hypothyroidism, marginal cord insertion but >1cm? SROM prior to admission Blood type:?O+ ?? PLAN:? 1.?Reviewed risks and benefits of expectant management vs PO Cytotec vs IV Pitocin. Desires Pitocin titration per policy. 2. Candidate for analgesia of choice. Planning epidural but uncertain of timing.? 3. Anticipate ? 4. Place IV for Pitocin titration and anticipated epidural. 5. Continuos monitoring per policy. Delivery/Labor/Induction Plan Induction method: per pitocin protocol OB Result Labs Blood Type: O (+) positive Rubella: immune RPR/VDLR: nonreactive GBS Status: negative HBsAG: negative OB Exam Physical Exam Vital signs: Temp Pulse Resp BP Pulse Ox 97.6 F 93 18 118/66 97 09/17/25 07:45 09/17/25 07:48 09/17/25 07:45 09/17/25 07:48 09/17/25 07:44 Narrative: Psychiatric:? Alert and oriented x3? HEENT:? Normocephalic, atraumatic? Neck:? Supple without adenopathy or thyromegaly? Lungs:? Clear to auscultation bilaterally? Heart:? Regular rate and rhythm, no murmur, rub or gallop? Abdomen:? Soft, nontender, and gravid? Extremities:? No edema or erythema? Detailed Labor and Delivery Exam Patient Gravid: yes Dilation (cm): 1 (1.5) Effacement (%): 60 Cervix position: posterior Consistency: soft Contraction Frequency: rare Tachysystole: No Contraction intensity: Mild Fetus (Single) Amniotic Membrane Status: SROM Amniotic Membrane Fluid Description: Clear Heart Rate Baseline: 125 Monitor Accelerations: Present Monitor Decelerations: None Collar Turner Operator Variability: Moderate (6-25)
[2025-09-17 09:02] LABS: Hematocrit* 38.0 % (33.0-51.0); Hemoglobin* 12.6 gm/dL (12.0-16.0); Immature Granulocytes Abs Auto 0.03 K/uL (0.00-0.30); Immature Granulocytes Pct Auto 0.4 %; Lymphocytes Absolute Auto 1.54 K/uL (0.90-2.90); Mean Corpuscular HGB Conc 33 gm/dL (32-36); Mean Corpuscular Hemoglobin 30 pg (26-34); Mean Corpuscular Volume 89 fL (80-100); RDW Coefficient of Variation % 13.3 % (11.5-15.5); Red Blood Count* 4.25 m/uL (4.00-5.20); White Blood Count* 7.64 K/uL (4.50-11.00)
[2025-09-17 09:08] LABS: Slide Review Reflex No
[2025-09-17] MEDS: LACTATED RINGERS 1000 ML 1,000 ML 125 ML IV ×2 (09:19→13:25)
[2025-09-17] MEDS: OXYTOCIN 30 unit/500 ML in NS 30 UNIT/500 ML BAG IVPB (09:24)
[2025-09-17] MEDS: LIDOCAINE 2% (PF) 5 ML VIAL EPIDURAL (13:17)
[2025-09-17] MEDS: ROPIVACAINE 0.2% 100 ml 100 ML 12 MG EPIDURAL (13:24)
--- NOTE | 2025-09-17 13:27 | PM.ANBPRC ---
[facility] Medical History Secondary female infertility ?N97.9 - Female infertility, unspecified (ICD-10) Attention deficit disorder (02/14/10) ?F98.8 - Other specified behavioral and emotional disorders with onset usually occurring in childhood and adolescence (ICD-10) Endometriosis determined by laparoscopy ?N80.9 - Endometriosis, unspecified (ICD-10) Hypothyroid ?E03.9 - Hypothyroidism, unspecified (ICD-10) Dysmenorrhea (04/04/12) ?N94.6 - Dysmenorrhea, unspecified (ICD-10) Surgical History H/O laparoscopy ?Z98.890 - Other specified postprocedural states (ICD-10) Family History Father Diabetes Social History Narrative: SOCIAL HISTORY: Occupation: Occupational therapist at [employer] Marital status: . Partner: Leoncio. Lives with: . Pets: Cat and dog. Oriental Orthodox/cultural needs: No. Chemical or radiation exposure: No. Pre- tobacco use: No. Pre- alcohol use: No. Current tobacco use: No. Current alcohol use: No. Recreational drug use: No. Dietary restrictions: No. Blood transfusion acceptable in an emergency: Yes. Planning to breastfeed: Yes. What is your current living situation?: I presently have a place to live Problems where you live: no known problems In the past 12 months, utilities in danger of being shut off: no In past 12 months, lack of transportation kept you from medical appts, meetings, work, or getting things needed for daily living: no In the past 12 mos, have been you worried that your food would run out before you had money to buy more?: never true In the past 12 mos, the food you bought just didn't last and you didn't have money to buy more?: never true Smoking Status: Never smoker Do you use any of these nicotine containing products: None Second hand tobacco smoke exposure: No How often do you have a drink containing alcohol: never How often do you have six or more drinks on one occasion: Never AUDIT-C Alcohol total score: 0 Non-prescribed substance use: denies use How often does anyone, including family, friends and others, physically hurt you: never How often does anyone, including family, friends and others, insult or talk down to you: never How often does anyone, including family, friends and others, threaten you with harm: never How often does anyone, including family, friends and others, scream or curse at you: never service: No Meds Home Medications and Allergies Home Medications ?Medication ?Instructions ?Recorded ?Confirmed ?Type XOG-ybcj-HH-omega 3 fatty no.1 27 cap PO DAILY 12/12/24 09/11/25 History mg-1 mg-300 mg capsule levothyroxine 50 mcg tablet 50 mcg PO QDAY #30 tabs 08/06/25 09/17/25 Rx Allergies Allergy/AdvReac Type Severity Reaction Status Date / Time No Known Allergies Allergy Verified 09/17/25 08:09 Results Labs Labs: Laboratory Results - last 24 hr 09/17/25 09/17/25 07:50 08:45 WBC 7.64 RBC 4.25 Hgb 12.6 Hct 38.0 MCV 89 MCH 30 MCHC 33 RDW Coeff of Elisabeth 13.3 Plt Count 196 Neut % (Auto) 67.6 Lymph % (Auto) 20.2 [place] % (Auto) 10.3 Eos % (Auto) 1.2 Baso % (Auto) 0.3 Neut # (Auto) 5.17 Lymph # (Auto) 1.54 [place] # (Auto) 0.80 Eos # (Auto) 0.09 Baso # (Auto) 0.02 Abs Immat Gran (auto) 0.03 Imm/Tot Granulo (auto) 0.4 Membrane Rupture POSITIVE Syphilis IgG Antibody 0.01 Blood Type O Positive Antibody Screen NEGATIVE Vital Signs Vital Signs: Last Vital Signs Temp 97.9 F 09/17/25 12:06 Pulse 82 09/17/25 13:27 Resp 18 09/17/25 12:06 BP 121/72 09/17/25 13:27 Pulse Ox 98 09/17/25 13:23 Weight: 86.5 kg Height: 157.48 cm Anesthesia Procedures Epidural Insertion Patient Location: OB Start Time: 12:45 Stop Time: 13:28 Start Date: 09/17/25 Stop Date: 09/17/25 Reason for Block: procedure for pain Patient Position: sitting Performed By: Liz Rivera Preanesthetic Checklist: IV checked, risks and benefits discussed, surgical consent, monitors and equipment checked, pre-op evaluation, timeout performed and anesthesia consent Prep: chlorhexidine gluconate Monitoring: blood pressure monitoring, continuous pulse oximetry and heart rate Approach: midline Vertebral Space: lumbar (1-5) Needle Type: Tuohy needle Injection Technique: continuous catheter (continuous catheter) Needle gauge: 17 Needle Length (cm): 10 cm Needle Insertion Depth (cm): 5 Catheter Gauge: 19 Catheter Type: multi-orifice Catheter at skin depth (cm): 12 Test Dose Result: negative and lidocaine 1.5% with epinephrine 1 to 200,000
[2025-09-17] MEDS: PHENYLEPHRINE 100 MCG/ML SYRINGE IVP ×3 (13:53→14:20)
--- NOTE | 2025-09-17 14:49 | P.OBPN_ITS ---
Subjective Date Seen: 09/17/25 Narrative: At noon time Cristel was starting to feel more uncombable with contractions but was coping well. Continued with Pitocin titration. Around 1300 she requested an epidural and she is now comfortable with it in place. At 1433 I was notified of a deceleration to the 80. Shortly before the RN had performed a SVE after multiple variables and was found to be 3cm/75%. On my arrival I found her to be 9.5 with a left anterior rim at -2 station. FHTs did improve with position ramirez es. Pitocin was turned off with the deceleration. Can consider restarting if contractions are not continuing to be adequate for progress. Will plan to check again after giving the fetus some recovery time or sooner if indicated. Objective Vital Signs: Last Vital Signs Temp 97.9 F 09/17/25 12:06 Pulse 85 09/17/25 14:47 Resp 18 09/17/25 12:06 BP 108/58 L 09/17/25 14:47 Pulse Ox 97 09/17/25 14:47 Pelvic Exam Dilation (cm): 9.5 Effacement (%): 90 Station: -2 Contractions Monitor mode: External Contraction Frequency: Q2 min Contraction pattern: Regular Contraction intensity: Strong/Firm Pitocin Rate (mU/min): 0 Assessment Assessment: active labor Station: -2 Amniotic Membrane Status: SROM Status: Category ll Heart Rate Baseline: 125 Custodial Variability: Moderate (6-25) Monitor Accelerations: Present Monitor Decelerations: Variable (followed by a prolonged) Plan Plan: ASSESSMENT:? ?at?40.5?weeks gestation? GBS?negative? complicated by: hypothyroidism, marginal cord insertion but >1cm? Labor type: SROM with augmentation. Active labor. Blood type:?O+ ?? PLAN:? 1.?Pitocin turned off for FHR tracing concerns. Consider restarting if recovery if needed for adequate labor progress. 2. Effective epidural currently in place. 3. Anticipate ? 4. Continuos monitoring per policy.
--- NOTE | 2025-09-17 16:14 | W.PM.OBVAGDE ---
OB Procedure Vag Delivery Mother Details Mother Details: The patient is a 29 year-old, 3, Para 1, admitted on 09/17/25 at 40.5 Days gestation. : 3 Para: 2 Weeks Gestation: 40.5 Admission Date: 09/17/25 Additional Details Amniotic Membrane Status: SROM Amniotic Membrane Rupture Date: 09/17/25 Amniotic Membrane Rupture Time: 06:30 Amniotic Membrane Fluid Description: Clear Analgesia/Anesthesia Type: Epidural Waterbirth: No Pitcoin: Yes Intrapartal Events: Labor Augmentation Delivery augmentation: pitocin Labor Onset: 12:45 Complete: 15:21 Pushin:26 Heart: heart tones during second stage were category 2. Tracing was very difficult during second stage. Baseline to the 120's with frequent and prolonged decels to the 80's. some recovery between contractions but rapid descent and short second stage. Delivery Details Delivery Date: 09/17/25 Delivery Time: 15:44 Route of delivery: Gender: Female Infant Viability: Alive; Heart Rate Present Position at Delivery: OA Delivery Details: Patient was admitted for IOL but had SROM at home shortly before presenting. She progressed with Pitocin titration and progressed. SROM noted at 0630 with clear fluid. Patient was complete at 1521 and pushing at 1526. of a viable female at 1544 in left lateral. Vertex delivered OA. No nuchal cord or shoulder. Compound right hand at delivery. Body delivered easily and without incident. passed to mothers abdomen with a vigorous cry. Cord was clamped and cut at > 5 minutes. APGARS were 8 at one minute and 9 at five minutes respectively. Mouth was bulb suctioned. Intact placenta with a 3 vessel cord delivered spontaneously at 1551. Fundus firm. 2nd degree identified and repaired in typical fashion. QBL 75 cc. Mother and baby stable; mother plans to breastfeed. weight pending. 1 Minute Interval Total Score: 8 5 Minute Interval Total Score: 9 Additional Details Shoulder Dystocia: No Placenta Delivery Time: 15:51 Placental Delivery Description: Spontaneous Delivery repair: Vicryl Procedure Done: Global Blood Loss: 75 Laceration: Perineal - 2nd Degree Episiotomy Description: None Blood Loss Measurement Type: QBL Bakri Used: No Sponge/Need Count Correct: Yes Cord Vessel Description: 3 Vessels Event Summary Status: Mother and infant were stable after delivery. Disposition: floor
[2025-09-17] MEDS: IBUPROFEN 600 MG TABLET PO (18:47)
[2025-09-17] MEDS: ACETAMINOPHEN 500 MG TABLET 1000 MG PO (21:43)
[2025-09-18] MEDS: IBUPROFEN 600 MG TABLET PO ×2 (02:10→12:15)
[2025-09-18 02:14] VITALS: BP 113/70; PULSE 74; RESP 16; TEMP 36.4; O2SAT 97
--- NOTE | 2025-09-18 07:50 | P.DS_ITS ---
DS: Providers Provider Date Seen: 09/18/25 Date of admission: 09/17/25 07:34 Primary care physician: Not a Local Provider Admitting Clinician: Ronda Fernandez CNM Attending Physician on discharge: Lacie BRIZUELA Date of Discharge: 09/18/25 DS: Diagnosis Discharge Diagnosis (1) care and examination of lactating mother: Status: Acute Exam Narrative: Exam Narrative: GENERAL APPEARANCE:? normal affect, alert, no distress MOOD:? appropriate CHEST:? clear to auscultation HEART:? regular rate and rhythm ABDOMEN:? soft, non-tender the uterine fundus is 1 finger breadth below Umbilicus, Midline and is appropriate for the stage of recovery. PERINEUM:? mild edema of the perineum, there is a Perineal Laceration,? that is well approximated with no abnormal discharge or erythema EXTREMITIES:? normal and minimal edema Const: Vital Signs, click to edit/add: Vital Signs - 24 hr 09/17/25 08:58 09/17/25 08:58 09/17/25 10:09 Temperature 98.1 F Pulse Rate 83 79 Pulse Rate [Pulse Oximeter] Respiratory Rate 18 Blood Pressure 121/75 125/72 Blood Pressure [Le ft Arm] Pulse Oximetry Oxygen Delivery Me thod 09/17/25 10:09 09/17/25 10:59 09/17/25 10:59 Temperature 97.9 F 97.7 F Pulse Rate 77 Pulse Rate [Pulse Oximeter] Respiratory Rate 18 18 Blood Pressure 121/72 Blood Pressure [Le ft Arm] Pulse Oximetry 97 Oxygen Delivery Me thod 09/17/25 12:06 09/17/25 12:06 09/17/25 13:03 Temperature 97.9 F Pulse Rate 76 Pulse Rate [Pulse Oximeter] Respiratory Rate 18 Blood Pressure 126/76 Blood Pressure [Le ft Arm] Pulse Oximetry 96 98 Oxygen Delivery Me thod 09/17/25 13:08 09/17/25 13:11 09/17/25 13:13 Temperature Pulse Rate 78 Pulse Rate [Pulse Oximeter] Respiratory Rate Blood Pressure 138/75 Blood Pressure [Le ft Arm] Pulse Oximetry 98 97 Oxygen Delivery Me thod 09/17/25 13:15 09/17/25 13:17 09/17/25 13:18 Temperature Pulse Rate 88 83 Pulse Rate [Pulse Oximeter] Respiratory Rate Blood Pressure 135/72 130/68 Blood Pressure [Le ft Arm] Pulse Oximetry 98 Oxygen Delivery Me thod 09/17/25 13:19 09/17/25 13:20 09/17/25 13:23 Temperature Pulse Rate 85 100 80 Pulse Rate [Pulse Oximeter] Respiratory Rate Blood Pressure 125/70 130/74 123/68 Blood Pressure [Le ft Arm] Pulse Oximetry 98 Oxygen Delivery Me thod 09/17/25 13:25 09/17/25 13:27 09/17/25 13:28 Temperature Pulse Rate 92 82 95 Pulse Rate [Pulse Oximeter] Respiratory Rate Blood Pressure 121/72 121/72 116/70 Blood Pressure [Le ft Arm] Pulse Oximetry 98 Oxygen Delivery Me thod 09/17/25 13:30 09/17/25 13:32 09/17/25 13:33 Temperature Pulse Rate 89 89 Pulse Rate [Pulse Oximeter] Respiratory Rate Blood Pressure 118/68 118/70 Blood Pressure [Le ft Arm] Pulse Oximetry 96 Oxygen Delivery Me thod 09/17/25 13:34 09/17/25 13:38 09/17/25 13:41 Temperature Pulse Rate 94 97 Pulse Rate [Pulse Oximeter] Respiratory Rate Blood Pressure 115/66 144/69 H Blood Pressure [Le ft Arm] Pulse Oximetry 97 Oxygen Delivery Me thod 09/17/25 13:43 09/17/25 13:45 09/17/25 13:51 Temperature Pulse Rate 82 94 Pulse Rate [Pulse Oximeter] Respiratory Rate Blood Pressure 106/58 L 99/55 L Blood Pressure [Le ft Arm] Pulse Oximetry 97 Oxygen Delivery Me thod 09/17/25 13:55 09/17/25 13:56 09/17/25 14:03 Temperature Pulse Rate 94 68 88 Pulse Rate [Pulse Oximeter] Respiratory Rate Blood Pressure 100/59 L 111/63 103/56 L Blood Pressure [Le ft Arm] Pulse Oximetry Oxygen Delivery Me thod 09/17/25 14:06 09/17/25 14:12 09/17/25 14:17 Temperature Pulse Rate 91 91 67 Pulse Rate [Pulse Oximeter] Respiratory Rate Blood Pressure 96/53 L 96/55 L 111/57 L Blood Pressure [Le ft Arm] Pulse Oximetry Oxygen Delivery Me thod 09/17/25 14:21 09/17/25 14:26 09/17/25 14:31 Temperature Pulse Rate 75 80 78 Pulse Rate [Pulse Oximeter] Respiratory Rate Blood Pressure 102/58 L 102/59 L 110/58 L Blood Pressure [Le ft Arm] Pulse Oximetry Oxygen Delivery Me thod 09/17/25 14:36 09/17/25 14:37 09/17/25 14:42 Temperature Pulse Rate 96 Pulse Rate [Pulse Oximeter] Respiratory Rate Blood Pressure 116/82 Blood Pressure [Le ft Arm] Pulse Oximetry 95 97 Oxygen Delivery Me thod 09/17/25 14:43 09/17/25 14:47 09/17/25 14:51 Temperature Pulse Rate 89 85 81 Pulse Rate [Pulse Oximeter] Respiratory Rate Blood Pressure 118/57 L 108/58 L 102/55 L Blood Pressure [Le ft Arm] Pulse Oximetry 97 Oxygen Delivery Me thod 09/17/25 14:52 09/17/25 14:56 09/17/25 14:57 Temperature Pulse Rate 80 Pulse Rate [Pulse Oximeter] Respiratory Rate Blood Pressure 103/63 Blood Pressure [Le ft Arm] Pulse Oximetry 97 97 Oxygen Delivery Me thod 09/17/25 15:02 09/17/25 15:02 09/17/25 15:07 Temperature 97.8 F Pulse Rate 82 Pulse Rate [Pulse Oximeter] Respiratory Rate 18 Blood Pressure 106/64 Blood Pressure [Le ft Arm] Pulse Oximetry 96 97 Oxygen Delivery Me thod 09/17/25 15:11 09/17/25 15:12 09/17/25 15:17 Temperature Pulse Rate 83 89 Pulse Rate [Pulse Oximeter] Respiratory Rate Blood Pressure 107/65 114/66 Blood Pressure [Le ft Arm] Pulse Oximetry 96 96 Oxygen Delivery Me thod 09/17/25 15:22 09/17/25 15:27 09/17/25 15:33 Temperature Pulse Rate Pulse Rate [Pulse Oximeter] Respiratory Rate Blood Pressure Blood Pressure [Le ft Arm] Pulse Oximetry 96 96 91 Oxygen Delivery Me thod 09/17/25 15:34 09/17/25 15:35 09/17/25 15:39 Temperature Pulse Rate 81 Pulse Rate [Pulse Oximeter] Respiratory Rate Blood Pressure 129/69 Blood Pressure [Le ft Arm] Pulse Oximetry 98 97 Oxygen Delivery Me thod 09/17/25 15:41 09/17/25 15:44 09/17/25 15:48 Temperature Pulse Rate 93 Pulse Rate [Pulse Oximeter] Respiratory Rate Blood Pressure 132/76 Blood Pressure [Le ft Arm] Pulse Oximetry 89 99 Oxygen Delivery Me thod 09/17/25 15:51 09/17/25 15:55 09/17/25 16:03 Temperature 97.6 F Pulse Rate 88 83 Pulse Rate [Pulse Oximeter] Respiratory Rate 18 Blood Pressure 133/81 125/61 Blood Pressure [Le ft Arm] Pulse Oximetry Oxygen Delivery Me thod 09/17/25 16:03 09/17/25 16:18 09/17/25 16:18 Temperature Pulse Rate 84 Pulse Rate [Pulse Oximeter] Respiratory Rate 16 16 Blood Pressure 127/63 Blood Pressure [Le ft Arm] Pulse Oximetry Oxygen Delivery Me thod 09/17/25 16:33 09/17/25 16:33 09/17/25 16:48 Temperature Pulse Rate 70 Pulse Rate [Pulse Oximeter] Respiratory Rate 16 16 Blood Pressure 118/59 L Blood Pressure [Le ft Arm] Pulse Oximetry Oxygen Delivery Me thod 09/17/25 16:49 09/17/25 17:03 09/17/25 17:04 Temperature Pulse Rate 66 66 Pulse Rate [Pulse Oximeter] Respiratory Rate 16 Blood Pressure 131/61 124/70 Blood Pressure [Le ft Arm] Pulse Oximetry Oxygen Delivery Me thod 09/17/25 17:18 09/17/25 17:18 09/17/25 17:33 Temperature Pulse Rate 53 L 73 Pulse Rate [Pulse Oximeter] Respiratory Rate 18 Blood Pressure 127/73 117/70 Blood Pressure [Le ft Arm] Pulse Oximetry Oxygen Delivery Me thod 09/17/25 17:33 09/17/25 17:35 09/17/25 17:48 Temperature 97.7 F Pulse Rate 77 Pulse Rate [Pulse Oximeter] Respiratory Rate 16 Blood Pressure 125/76 Blood Pressure [Le ft Arm] Pulse Oximetry Oxygen Delivery Me thod 09/17/25 17:48 09/17/25 21:46 09/18/25 02:14 Temperature 98.0 F 97.6 F Pulse Rate Pulse Rate [Pulse Oximeter] 83 74 Respiratory Rate 16 16 16 Blood Pressure Blood Pressure [Le ft Arm] 110/71 113/70 Pulse Oximetry 96 97 Oxygen Delivery Me thod Room Air Room Air OB - DS: Summary Hospital Course Hospital Course: amna is a 29?y.o. G 3 P 2012 who was admitted to [facility] for SROM and planned IOL.??She had a NVD that was uncomplicated. The patient feels well.??The pain is well controlled with current medications.??She has no new complaints.??She is breast?feeding?and reports things are going well. the patient has done well.??Vitals have been stable.??She has?remained?afebrile.??Has a good appetite,?is?tolerating a general diet.??She is voiding without difficulty.??She is passing gas and has not had a bowel movement.??She is ambulating and denies any dizziness.??Has?small?amount of rubra lochia. She is unsure about plan for prevention.? ?? Problems: none? ?? plan:? Discharge?home with baby.? Follow up in 2 weeks and?6 weeks.? , may see if needed? Hgb 12.6 on admit. ? Peripartum Data delivery method: Vaginal Laceration description: Perineal - 2nd Degree Episiotomy description: None complications: none [place] Infant Gender: Female Infant Discharge Plan: Home Status at Discharge Functional status at discharge: independent ambulation Overall status at discharge: patient is progressing back to baseline Time Spent with Patient Time attestation: Total time spent providing and/or coordinating discharge services: Time spent: Less than 30 minutes Discharge Plan Discharge Disposition: Home, Self-Care Date of Admission: 09/17/25 07:34 Attending Provider on Discharge: Rosemary Vital Primary Care Provider: Provider,Not a Local Condition: Stable Anticipated Discharge Date/Time: 09/18/25 16:00 Discharge Medications: New levothyroxine [Euthyrox] 25 mcg tablet 25 mcg PO DAILY Qty: 60 3RF Continued JVF-omzo-JJ-omega 3 fatty no.1 27-1-300 mg capsule 1 cap PO DAILY Discontinued levothyroxine 50 mcg tablet 50 mcg PO QDAY Qty: 30 0RF Discharge Orders: Discharge Order (Routine); Ordered 09/18/25 Ordered By: Rosemary Vital Patient Education: OB Over the Counter Medication Information, OB Vaginal/Breast Feeding Additional Instructions: Discharge instructions were reviewed with the patient including signs and symptoms of infection and home going medications Nothing vaginally for 6 weeks: no tampons or intercourse Do not drive while taking narcotic pain medication(s) Off Work or School for 6 weeks Symptoms to report to doctor: * Bleeding that saturates more than one pad per hour * Passing clots larger than the size of a golf ball * Pain not relieved by prescribed medication * Fever above 100.4 degrees Fahrenheit * A foul vaginal odor * Difficulty in emotions, mood, and functions * Thoughts of hurting yourself and/or * Painful, reddened area in your breast * Any drainage, redness, or tenderness in your IV/epidural site * Severe headache that doesn't improve after taking medications * Changes in vision, including temporary loss of vision, blurred vision, and/or light sensitivity * Upper abdominal pain (usually under ribs on the right side) * Decrease in urination or painful, frequent urinating * Chest pain * Shortness of breath * Tenderness or pain with redness and/swelling in the calf(s) of your leg 2-week visit: discuss infant feeding concerns, review control options and screen for anxiety/depression. 6-week visit for an annual exam. consultation services are available to all mothers and babies for the first year after delivery.? To make an appointment, please call [phone]. Activity Level: Activity as Tolerated Discharge Diet: Regular Follow Up Appointments: [facility] [Provider Group] Forms: [employer] Info Instructions
[2025-09-18 08:10] VITALS: BP 107/75; PULSE 82; RESP 16; TEMP 36.4; O2SAT 97
[2025-09-18] MEDS: DOCUSATE SODIUM 100 MG CAPSULE PO (08:13)
[2025-09-18] MEDS: ACETAMINOPHEN 500 MG TABLET 1000 MG PO (08:13)
[2025-09-18 12:07] VITALS: BP 127/69; PULSE 78; RESP 16; TEMP 36.7; O2SAT 96
[2025-09-18 15:25] VITALS: BP 119/80; PULSE 76; RESP 16; O2SAT 97
== END 2025-09-18 18:11 | disposition home or self-care (01) | DRG 560 ==
PROVIDERS: Admitting Provider Advanced Practice Midwife; Visit Provider Advanced Practice Midwife
DX: O99.284 Endocrine, nutritional and metabolic diseases complicating childbirth (principal); E03.9 Hypothyroidism, unspecified; O70.1 Second degree perineal laceration during delivery; O76 Abnormality in fetal heart rate and rhythm complicating labor and delivery; Z3A.40 40 weeks gestation of pregnancy; Z37.0 Single live birth
CPT/HCPCS: 01967; 36415; 64488; 84112; 85025; 86780; 86850; 86900; 86901; A9270; J2795; J7120